=== PATIENT | female | born 1935 | race Caucasian/White ===

== ENCOUNTER 2022-06-21 09:28 | Inpatient (IN) ==
--- NOTE | 2022-06-21 10:03 | Emergency Department Note ---
Impression & Plan Acute alteration in mental status ED Provider Note NAME: JOSE A FOURNIER AGE: 86 SEX: F : 1935 ARRIVES VIA: Walk-In INFORMANT: Patient, the patient's daughter ED PROVIDER(S): Saurabh Rodriguez DO CHIEF COMPLAINT: Altered mental status HPI: The patient is an 86-year-old female who presented to the emergency department with her daughter for a possible stroke evaluation. The patient does not have a history of dementia. She normally is awake alert and oriented to person place time and situation. Her daughter states that she had a very minimal conversation with her this morning at around 8 AM. Her mother appeared to be at her normal mental status. She then came back to talk to her again and she realized that her mother was confused. She was confused about where she was. She asked her mother if she was in [place]. She then asked about the patient's ex- and wanted to know where he was even though she knew he was not local. There is been no reported trauma or fever. She has had no dysuria or frequency. She is under nausea vomiting or headache. She does not have a history of stroke in the past. The patient states that she felt fine when she went to bed last evening. ROS: See above HPI for pertinent positives & negatives. A total of 10 systems reviewed and were otherwise negative. PAST MEDICAL HISTORY: See Below PAST SURGICAL HISTORY: See Below FAMILY HISTORY: See Below SOCIAL HISTORY: See Below HOME MEDICATIONS: See Below ALLERGIES: See Below VITALS: See Below PHYSICAL EXAMINATION: GENERAL: Patient is awake alert in no acute distress patient is resting c omfortably and showing no signs of anxiety EYES: The conjunctivae are clear. The pupils are round and reactive. EARS, NOSE, MOUTH AND THROAT: The nose is without any evidence of any deformity. Mucous membranes are moist. Tongue is midline. NECK: The neck is nontender and supple. RESPIRATORY: Normal respiratory effort is noted there is no evidence of wheezing rhonchi or rales CARDIOVASCULAR: Regular rate and rhythm was noted auscultation. Systolic murmur was suggested. GASTROINTESTINAL: The abdomen is soft. Abdomen is nontender. MUSCULOSKELETAL/EXTREMITIES: There is no evidence of gross deformity full range of motion is noted in the hips and shoulders. SKIN: There is no obvious evidence of any rash. There are no petechiae, pallor or cyanosis noted. NEUROLOGIC: Patient is awake alert and oriented to person place and situation. She is not oriented to time. She is able to do simple math problems. Medical Office Professional Instructor strength was symmetric. There is no facial droop. Patient is able to hold each leg off the bed for greater than 5 seconds. MEDICAL DECISION MAKING: Patient is an 86-year-old female who presented to the emergency department for an evaluation of altered mental status. The patient presented with her daughter. She was not made a stroke alert initially on arrival as the patient's NIH score was fluctuating between 0 and 1. She was not found to have any acute findings on CT of the head. I did discuss the possibility of making the patient a stroke alert with her and her family. At this time the risk of delivering thrombolytic may be higher than the benefit given the patient's findings today in the emergency department. She had no focal neurologic deficits and only lost points because she was intermittently confused about date and surroundings. I discussed the patient's laboratory and radiographic studies with her and her daughter. She was still found to have some degree of confusion in the emergency department. She also started having some retrograde amnesia about coming to the emergency department. For this reason I discussed her case with the on-call [facility] hospitalist. They have agreed to evaluate the patient in the emergency department for further management and disposition. Triage Nursing notes reviewed. Prior medical records reviewed Vital Signs: reviewed and remarkable for elevated blood pressure. Differential diagnosis: Infection, hypoglycemia, electrolyte abnormalities, overdose, toxicologic, cardiac sources, intracerebral event, neurologic, trauma, as well as other pathologies. ER treatment provided: See below Diagnostics interpreted by me: ECG: EKG was obtained in the emergency department. My interpretation is sinus rhythm at 66 bpm. There is no ectopy. There is no acute ST segment abnormalities noted. No previous tracing was available. Cardiac Monitoring: An order was placed for continuous cardiac monitoring. The monitor shows a rate of 69 bpm with sinus rhythm. Laboratory studies: As stated above and show below. Imaging studies: See below Consultation(s): I discussed this case with Dr. Metcalf Past Med/Surg History Medical History (Updated 06/21/22 @ 14:42 by Saurabh Rodriguez DO) Anemia Anxiety Asthma rare res inh use per pt Chronic obstructive pulmonary disease rare res inh use per pt Diverticular disease Esophagitis GERD (gastroesophageal reflux disease) Hyperlipidemia borderline per pt Hypertension Hypothyroidism Osteoarthritis Rheumatoid arthritis Slow to wake up after anesthesia Surgical History (Updated 06/21/22 @ 13:57 by Martha Metcalf MD) History of aortic valve repair 2016 per pt History of appendectomy History of carpal tunnel release left History of cataract surgery LEFT History of cholecystectomy History of colonoscopy History of esophagogastroduodenoscopy (EGD) History of hysterectomy History of tonsillectomy History of tooth extraction History of total knee replacement left Hx of foot surgery right Family History Daughter Slow to wake up after anesthesia Social History Smoking Status: Never smoker Second Hand Exposure: No; Hx Alcohol Use: No Hx Substance Use: No Preferred Language: Kazakh Communication Ability: Effective Aerospace Assembler Required: No Beliefs That Will Affect Care: None Current Living Situation: Alone Other Information That Helps Us Care for You: No Feels Safe at Home: Yes Safety Concerns: Feels Safe At This Time Assistive Devices: Cane, Denture - Upper, Denture - Lower and Hearing Aid - Right Allergies Allergies Allergy/AdvReac Type Severity Reaction Status Date / Time lisinopril Allergy Intermediate Cough Verified 06/21/22 15:18 Sulfa (Sulfonamide Allergy Intermediate Rash Verified 06/21/22 15:18 Antibiotics) tramadol Allergy Intermediate restless Verified 06/21/22 15:18 clonazepam [From Klonopin] Allergy Unknown Unknown Verified 06/21/22 15:18 mepivacaine [From Carbocaine] AdvReac Intermediate crying Verified 06/21/22 15:18 Home Meds Home Medications Medication Instructions Recorded Confirmed albuterol sulfate 90 mcg/actuation 2 puff inhalation Q6H PRN 02/13/22 06/21/22 aerosol inhaler (ProAir HFA) Congestion aspirin 81 mg tablet,delayed 81 mg PO QAM 02/13/22 06/21/22 release calcium carbonate 600 mg-vitamin 1 tab PO QAM 02/13/22 06/21/22 D3 10 mcg (400 unit) tablet (Calcium 600 + D(3)) docusate sodium 100 mg capsule 100 mg PO QAM 02/13/22 06/21/22 (Colace) duloxetine 60 mg capsule,delayed 60 mg PO Q OTHER DAY 02/13/22 06/21/22 release fluticasone furoate 200 1 inh inhalation HS 02/13/22 06/21/22 mcg-vilanterol 25 mcg/dose inhalation powder (Breo Ellipta) furosemide 40 mg tablet (Lasix) 40 mg PO QAM 02/13/22 06/21/22 hydrocodone 5 mg-acetaminophen 325 1 tab PO Q4H PRN Pain 02/13/22 06/21/22 mg tablet levothyroxine 150 mcg tablet 150 mcg PO QAM 02/13/22 06/21/22 lorazepam 0.5 mg tablet 0.5 mg PO BID PRN Anxiety 02/13/22 06/21/22 losartan 100 mg tablet 100 mg PO QAM 02/13/22 06/21/22 metoprolol tartrate 25 mg tablet 12.5 mg PO BID 02/13/22 06/21/22 multivitamin 1 tab PO QAM 02/13/22 06/21/22 omeprazole 40 mg capsule,delayed 40 mg PO HS 02/13/22 06/21/22 release potassium chloride 10 mEq 10 meq PO QAM 02/13/22 06/21/22 capsule,extended release pramipexole 1 mg tablet 1 mg PO BID 02/13/22 06/21/22 trazodone 100 mg tablet 100 mg PO HS 02/13/22 06/21/22 vit C 250 mg-vit E 90 mg-zinc 40 1 tab PO QAM 02/13/22 06/21/22 mg-copper 1 [id number] capsule (PreserVision AREDS-2) Results & Data (ED) Vital Signs Vital Signs - 24 hr 06/21/22 09:33 06/21/22 10:00 06/21/22 09:54 Temperature 36.3 C L Temperature Source Temporal Artery Scan Pulse Rate 68 Pulse Rate [Apical] 65 Pulse Rate from SpO2 Sensor Respiratory Rate 16 18 Respiratory Effort / Characteristics Non-Labored Non-Labored Spontaneous Respiratory Depth Normal Normal Blood Pressure 143/62 H Blood Pressure [Right Arm] 124/67 Blood Pressure Mean 89 Blood Pressure Mean [Right Arm] 86 Pulse Oximetry 94 95 Oxygen Delivery Method Room Air Room Air Room Air Sepsis Recent Fever Within 48 Hours No Sepsis New/Unexplained Change in Mental Status No Sepsis Action Taken by Nursing No Action Required 06/21/22 11:00 06/21/22 11:00 06/21/22 11:33 Temperature Temperature Source Pulse Rate 67 Pulse Rate [Apical] 80 Pulse Rate from SpO2 Sensor 71 Respiratory Rate 18 19 Respiratory Effort / Characteristics Respiratory Depth Blood Pressure 119/70 Blood Pressure [Right Arm] 148/73 H Blood Pressure Mean 86 Blood Pressure Mean [Right Arm] 98 Pulse Oximetry 95 94 Oxygen Delivery Method Room Air Sepsis Recent Fever Within 48 Hours Sepsis New/Unexplained Change in Mental Status Sepsis Action Taken by Nursing 06/21/22 12:15 06/21/22 12:30 06/21/22 12:30 Temperature Temperature Source Pulse Rate 67 Pulse Rate [Apical] Pulse Rate from SpO2 Sensor 82 68 Respiratory Rate 17 Respiratory Effort / Characteristics Respiratory Depth Blood Pressure 122/85 Blood Pressure [Right Arm] Blood Pressure Mean 97 Blood Pressure Mean [Right Arm] Pulse Oximetry 91 94 Oxygen Delivery Method Room Air Room Air Sepsis Recent Fever Within 48 Hours Sepsis New/Unexplained Change in Mental Status Sepsis Action Taken by Nursing 06/21/22 13:00 06/21/22 13:00 06/21/22 13:30 Temperature Temperature Source Pulse Rate 69 Pulse Rate [Apical] Pulse Rate from SpO2 Sensor 69 Respiratory Rate 23 Respiratory Effort / Characteristics Respiratory Depth Blood Pressure 121/72 141/80 H Blood Pressure [Right Arm] Blood Pressure Mean 88 100 Blood Pressure Mean [Right Arm] Pulse Oximetry 93 Oxygen Delivery Method Room Air Sepsis Recent Fever Within 48 Hours Sepsis New/Unexplained Change in Mental Status Sepsis Action Taken by Nursing 06/21/22 13:30 06/21/22 14:00 06/21/22 14:00 Temperature Temperature Source Pulse Rate 69 69 Pulse Rate [Apical] Pulse Rate from SpO2 Sensor 68 71 Respiratory Rate 23 14 Respiratory Effort / Characteristics Respiratory Depth Blood Pressure 145/86 H Blood Pressure [Right Arm] Blood Pressure Mean 105 Blood Pressure Mean [Right Arm] Pulse Oximetry 95 94 Oxygen Delivery Method Room Air Room Air Sepsis Recent Fever Within 48 Hours Sepsis New/Unexplained Change in Mental Status Sepsis Action Taken by [facility] Medications Current Medication List: was personally reviewed by me Laboratory Data Attestation: I reviewed the patient's lab results. Result diagrams: 06/21/22 10:00 06/21/22 10:00 Lab Results 06/21/22 06/21/22 06/21/22 Range/Units 10:00 10:00 10:00 WBC 4.95 (4.8-10.8) K/ul RBC 4.51 (3.93-5.22) M/uL Hgb 13.7 (12.0-16.0) g/dl Hct 42.2 (34.1-44.9) % MCV 93.6 (80.0-100.0) fL MCH 30.4 (25.0-34.0) pg MCHC 32.5 (32.0-36.0) g/dL RDW Std Deviation 46.9 H (36.4-46.3) fL RDW Coeff of Giselle 13.8 (11.5-14.5) % Plt Count 239 (130-400) K/uL MPV 9.3 L (9.4-12.3) fL Immature Gran % (Auto) 0.4 % Neut % (Auto) 56.7 % Lymph % (Auto) 27.3 % [place] % (Auto) 9.1 % Eos % (Auto) 5.5 % Baso % (Auto) 1.0 % Neut # (Auto) 2.81 (1.4-6.5) K/uL Lymph # (Auto) 1.35 (1.2-3.4) K/uL [place] # (Auto) 0.45 (0.24-0.82) K/uL Eos # (Auto) 0.27 (0-0.50) K/uL Baso # (Auto) 0.05 (0-0.2) K/uL Immature Gran # (Auto) 0.02 (0.00-0.02) K/uL PT 11.2 (9.0-12.0) Seconds INR 1.1 (0.9-1.1) APTT 26.3 (21.0-31.0) Seconds PTT Ratio 1.0 Sodium 139 (136-145) mmol/L Potassium 3.8 (3.5-5.1) mmol/L Chloride 100 (98-107) mmol/L Carbon Dioxide 31 (21-32) mmol/L Anion Gap 8 (3-11) BUN 15 (6-23) mg/dl Creatinine 0.69 (0.6-1.2) mg/dl Est Cr Clr Drug Dosing 53.3 ml/min Est GFR ( Amer) 91.4 ml/min Est GFR (Non-Af Amer) 78.8 ml/min BUN/Creatinine Ratio 21.7 H (10-20) Glucose 103 H (70-99(Fasting)) mg/dl POC Glucose (70-99) mg/dl Calcium 9.8 (8.5-10.1) mg/dl Magnesium 1.8 (1.7-2.4) mg/dl Total Bilirubin 0.4 (0.2-1.0) mg/dl AST 21 (13-39) U/L ALT 17 (7-52) U/L Alkaline Phosphatase 104 (34-104) U/L Troponin I High Sens 11.2 (0-14) pg/ml Total Protein 7.4 (6.0-8.3) gm/dl Albumin 4.1 (3.4-5.0) gm/dl Globulin 3.3 (2.5-4.0) gm/dl Albumin/Globulin Ratio 1.2 (0.9-2) Urine Color Urine Appearance (Clear) Urine pH (4.5-7.5) Ur Specific [place] (1.000-1.030) Urine Protein (Negative) Urine Glucose (UA) (Negative) Urine Ketones (Negative) Urine Blood (Negative) Urine Nitrite (Negative) Urine Bilirubin (Negative) Urine Urobilinogen (Negative) Ur Leukocyte Esterase (Negative) SARS-CoV-2, RNA, NAAT (NEGATIVE) 06/21/22 06/21/22 06/21/22 Range/Units 10:05 10:18 11:30 WBC (4.8-10.8) K/ul RBC (3.93-5.22) M/uL Hgb (12.0-16.0) g/dl Hct (34.1-44.9) % MCV (80.0-100.0) fL MCH (25.0-34.0) pg MCHC (32.0-36.0) g/dL RDW Std Deviation (36.4-46.3) fL RDW Coeff of Giselle (11.5-14.5) % Plt Count (130-400) K/uL MPV (9.4-12.3) fL Immature Gran % (Auto) % Neut % (Auto) % Lymph % (Auto) % [place] % (Auto) % Eos % (Auto) % Baso % (Auto) % Neut # (Auto) (1.4-6.5) K/uL Lymph # (Auto) (1.2-3.4) K/uL [place] # (Auto) (0.24-0.82) K/uL Eos # (Auto) (0-0.50) K/uL Baso # (Auto) (0-0.2) K/uL Immature Gran # (Auto) (0.00-0.02) K/uL PT (9.0-12.0) Seconds INR (0.9-1.1) APTT (21.0-31.0) Seconds PTT Ratio Sodium (136-145) mmol/L Potassium (3.5-5.1) mmol/L Chloride (98-107) mmol/L Carbon Dioxide (21-32) mmol/L Anion Gap (3-11) BUN (6-23) mg/dl Creatinine (0.6-1.2) mg/dl Est Cr Clr Drug Dosing ml/min Est GFR ( Amer) ml/min Est GFR (Non-Af Amer) ml/min BUN/Creatinine Ratio (10-20) Glucose (70-99(Fasting)) mg/dl POC Glucose 90 (70-99) mg/dl Calcium (8.5-10.1) mg/dl Magnesium (1.7-2.4) mg/dl Total Bilirubin (0.2-1.0) mg/dl AST (13-39) U/L ALT (7-52) U/L Alkaline Phosphatase (34-104) U/L Troponin I High Sens (0-14) pg/ml Total Protein (6.0-8.3) gm/dl Albumin (3.4-5.0) gm/dl Globulin (2.5-4.0) gm/dl Albumin/Globulin Ratio (0.9-2) Urine Color Yellow Urine Appearance Clear (Clear) Urine pH 5.0 (4.5-7.5) Ur Specific [place] 1.009 (1.000-1.030) Urine Protein Negative (Negative) Urine Glucose (UA) Negative (Negative) Urine Ketones Negative (Negative) Urine Blood Negative (Negative) Urine Nitrite Negative (Negative) Urine Bilirubin Negative (Negative) Urine Urobilinogen Negative (Negative) Ur Leukocyte Esterase Negative (Negative) SARS-CoV-2, RNA, NAAT NEGATIVE (NEGATIVE) Administered Medications Fluticasone/Vilanterol (Fluticasone/Vilanterol 200/25mcg 14 Puffs/Inhaler) 1 puffs INH HS [facility] Stop: 07/21/22 20:59 Last Admin: 06/21/22 20:29 Dose: 1 puffs Documented By: JUMA Heparin Sodium (Porcine) (Heparin Sod 5,000 Unit/0.5 Ml Vial) 5,000 units SQ Q12 JENNIFER Stop: 07/21/22 20:59 Last Admin: 06/21/22 20:28 Dose: 5,000 units Documented By: JUMA Levothyroxine Sodium (Levothyroxine Sodium 150 Mcg Tablet) 150 mcg PO DAILYBB [facility] Stop: 07/22/22 06:29 Last Admin: 06/22/22 06:00 Dose: 150 mcg Documented By: JUMA Metoprolol Tartrate (Metoprolol Tartrate 25 Mg Tab) 12.5 mg PO BID JENNIFER Stop: 07/21/22 20:59 Last Admin: 06/21/22 20:27 Dose: 12.5 mg Documented By: JUMA Miscellaneous (Order Awaiting Action) 1 each N/A QS JENNIFER Stop: 07/22/22 00:00 Last Admin: 06/22/22 07:43 Dose: Not Given Documented By: Admin: 06/21/22 20:34 Dose: Not Given Documented By: JUMA Pantoprazole Sodium (Pantoprazole 40 Mg Tab) 40 mg PO [facility]; Protocol Stop: 07/21/22 20:59 Last Admin: 06/21/22 20:27 Dose: 40 mg Documented By: JUMA Discontinued Medications Ioversol (Optiray 320 125ml) 120 ml IV ONCE ONE Stop: 06/21/22 12:18 Last Admin: 06/21/22 12:18 Dose: 120 ml Documented By: ARNOLDO Morphine Sulfate (Morphine Sulfate 4 Mg/Ml 1 Ml Carp\Vial) 3 mg IV NOW STA Stop: 06/22/22 05:50 Last Admin: 06/22/22 06:02 Dose: 3 mg Documented By: JUMA Oxycodone HCl (Oxycodone Hcl Ir 5 Mg Tab (Immediate Release)) 5 mg PO NOW STA Stop: 06/21/22 23:35 Last Admin: 06/21/22 23:47 Dose: 5 mg Documented By: JUMA Imaging Data Radiologist's Impression: Chest X-Ray 06/21/22 09:54 SINGLE VIEW CHEST CLINICAL HISTORY: Strokelike symptoms. FINDINGS: An AP, portable, upright chest radiograph is correlated with chest CT to study dated 04/22/2022. The examination is degraded by portable technique and apical lordotic positioning. The patient is status post midline sternotomy and cardiac valve surgery. The heart is mildly enlarged noting atherosclerotic calcification of the thoracic aorta. The pulmonary vasculature is noncongested. Chronic interstitial thickening is similar to previous. 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 There is bibasilar scarring/atelectasis. No airspace consolidation or large pleural effusion is identified. No pneumothorax is seen. The skeletal structures are osteopenic. There are chronic right-sided rib fractures. Degenerative change is noted in the shoulders. IMPRESSION: Cardiomegaly with no acute cardiopulmonary abnormality identified. ACT 112: Negative or not required by law. Electronically signed by: Jose Monroy M.D. 06/21/2022 10:[address] 06/21/22 09:[address] OF THE BRAIN; CT ANGIOGRAM OF THE BRAIN; CT ANGIOGRAM OF THE NECK CLINICAL HISTORY: Strokelike symptoms. Change in mental status. COMPARISON STUDY: Chest CT dated 04/22/2022. TECHNIQUE: Unenhanced axial CT scan of the brain is performed. Subsequently, following the IV administration of 120 of Optiray 320, CT angiogram of the head and neck was performed from the aortic arch to the vertex. Images are reviewed in the axial, sagittal, and coronal planes. 3-D MIPS images are created and assessed. IV contrast was administered without complication. All measurements were calculated based on NASCET criteria. A dose lowering technique was utilized adhering to the principles of ALARA. CT DOSE: 1086.72 mGy.cm FINDINGS: Brain parenchyma: There is age-related involutional change noting moderate to advanced confluent subcortical and periventricular microangiopathic disease. There is no hemorrhage, mass effect, or evidence of acute territorial ischemia by CT criteria. There is no evidence of enhancing mass lesion on the angiogram phase images. The ventricles, sulci, and cisterns are prominent secondary to involutional change. Diallo-white matter differentiation is preserved. No extra- axial fluid collection is seen. Thoracic aorta: There is atherosclerotic calcification of the thoracic aorta. Visualized portions of the thoracic aorta are normal in caliber. The aortic arch demonstrates standard 3-vessel anatomy. Right carotid arterial system: The right common carotid artery is widely patent, as are the right internal and external carotid arteries. Calcified plaque is noted in the carotid bulb. Left carotid arterial system: The left common carotid artery is widely patent, as are the left internal and external carotid arteries. Calcified plaque is noted in the carotid bulb. Vertebral arteries: The vertebral arteries are widely patent bilaterally and codominant. Subclavian arteries: Widely patent bilaterally. Atherosclerotic calcification is noted at the origin of the left subclavian artery. Intracranial vasculature: There is atherosclerotic calcification of the cavernous carotid arteries. The internal carotid arteries are patent at the skull base, as are the anterior and middle cerebral arteries bilaterally. The vertebrobasilar system and posterior cerebral arteries are widely patent. The vertebral arteries are codominant. There is no aneurysm, high-grade stenosis, or focal vessel cut off seen throughout the intracranial circulation. Jugular veins: Patent bilaterally. Dural sinuses: Patent. Lung apices: A 7 mm left upper lobe nodule is seen on image #59. Upper lobe lung parenchyma is otherwise clear as imaged. Soft tissues: The visualized pharyngeal soft tissues are normal in appearance noting angiographic phase technique. The oropharyngeal airway appears widely patent. The thyroid gland is mildly enlarged and heterogeneous. The salivary glands are normal in appearance. No cervical lymphadenopathy is seen. Skeletal structures: The skeletal structures are osteopenic. The calvarium appears intact. The cervical spine is maintained noting multilevel spondylosis. No lytic or blastic lesion is seen. Midline sternotomy wires are observed. Orbits: The bony orbits are intact. Orbital contents are normal as visualized noting bilateral ocular lens implants. Sinuses and mastoids: The paranasal sinuses are clear. The mastoid air cells are well pneumatized. IMPRESSION: 1. There is no hemorrhage, mass effect, or evidence of acute territorial ischemia by CT criteria. 2. Unremarkable CT angiogram of the brain. 3. Unremarkable CT angiogram of the neck. 4. There is an irregular 7 mm left upper lobe pulmonary nodule. This is new from the 04/22/[address] and likely inflammatory. Any follow-up should be based on clinical grounds. ACT 112: Negative or not required by law. Electronically signed by: Jose Monroy M.D. 06/21/2022 12:37 PM Head CTA 06/21/22 09:[address] OF THE BRAIN; CT ANGIOGRAM OF THE BRAIN; CT ANGIOGRAM OF THE NECK CLINICAL HISTORY: Strokelike symptoms. Change in mental status. COMPARISON STUDY: Chest CT dated 04/22/2022. TECHNIQUE: Unenhanced axial CT scan of the brain is performed. Subsequently, following the IV administration of 120 of Optiray 320, CT angiogram of the head and neck was performed from the aortic arch to the vertex. Images are reviewed in the axial, sagittal, and coronal planes. 3-D MIPS images are created and assessed. IV contrast was administered without complication. All measurements were calculated based on NASCET criteria. A dose lowering technique was utilized adhering to the principles of ALARA. CT DOSE: 1086.72 mGy.cm FINDINGS: Brain parenchyma: There is age-related involutional change noting moderate to advanced confluent subcortical and periventricular microangiopathic disease. There is no hemorrhage, mass effect, or evidence of acute territorial ischemia by CT criteria. There is no evidence of enhancing mass lesion on the angiogram phase images. The ventricles, sulci, and cisterns are prominent secondary to i nvolutional change. Diallo-white matter differentiation is preserved. No extra- axial fluid collection is seen. Thoracic aorta: There is atherosclerotic calcification of the thoracic aorta. Visualized portions of the thoracic aorta are normal in caliber. The aortic arch demonstrates standard 3-vessel anatomy. Right carotid arterial system: The right common carotid artery is widely patent, as are the right internal and external carotid arteries. Calcified plaque is noted in the carotid bulb. Left carotid arterial system: The left common carotid artery is widely patent, as are the left internal and external carotid arteries. Calcified plaque is noted in the carotid bulb. Vertebral arteries: The vertebral arteries are widely patent bilaterally and codominant. Subclavian arteries: Widely patent bilaterally. Atherosclerotic calcification is noted at the origin of the left subclavian artery. Intracranial vasculature: There is atherosclerotic calcification of the cavernous carotid arteries. The internal carotid arteries are patent at the skull base, as are the anterior and middle cerebral arteries bilaterally. The vertebrobasilar system and posterior cerebral arteries are widely patent. The vertebral arteries are codominant. There is no aneurysm, high-grade stenosis, or focal vessel cut off seen throughout the intracranial circulation. Jugular veins: Patent bilaterally. Dural sinuses: Patent. Lung apices: A 7 mm left upper lobe nodule is seen on image #59. Upper lobe lung parenchyma is otherwise clear as imaged. Soft tissues: The visualized pharyngeal soft tissues are normal in appearance noting angiographic phase technique. The oropharyngeal airway appears widely patent. The thyroid gland is mildly enlarged and heterogeneous. The salivary glands are normal in appearance. No cervical lymphadenopathy is seen. Skeletal structures: The skeletal structures are osteopenic. The calvarium appears intact. The cervical spine is maintained noting multilevel spondylosis. No lytic or blastic lesion is seen. Midline sternotomy wires are observed. Orbits: The bony orbits are intact. Orbital contents are normal as visualized noting bilateral ocular lens implants. Sinuses and mastoids: The paranasal sinuses are clear. The mastoid air cells are well pneumatized. IMPRESSION: 1. There is no hemorrhage, mass effect, or evidence of acute territorial ischemia by CT criteria. 2. Unremarkable CT angiogram of the brain. 3. Unremarkable CT angiogram of the neck. 4. There is an irregular 7 mm left upper lobe pulmonary nodule. This is new from the 04/22/[address] and likely inflammatory. Any follow-up should be based on clinical grounds. ACT 112: Negative or not required by law. Electronically signed by: Jose Monroy M.D. 06/21/2022 12:37 PM Neck CTA 06/21/22 09:[address] OF THE BRAIN; CT ANGIOGRAM OF THE BRAIN; CT ANGIOGRAM OF THE NECK CLINICAL HISTORY: Strokelike symptoms. Change in mental status. COMPARISON STUDY: Chest CT dated 04/22/2022. TECHNIQUE: Unenhanced axial CT scan of the brain is performed. Subsequently, following the IV administration of 120 of Optiray 320, CT angiogram of the head and neck was performed from the aortic arch to the vertex. Images are reviewed in the axial, sagittal, and coronal planes. 3-D MIPS images are created and assessed. IV contrast was administered without complication. All measurements were calculated based on NASCET criteria. A dose lowering technique was utilized adhering to the principles of ALARA. CT DOSE: 1086.72 mGy.cm FINDINGS: Brain parenchyma: There is age-related involutional change noting moderate to advanced confluent subcortical and periventricular microangiopathic disease. There is no hemorrhage, mass effect, or evidence of acute territorial ischemia by CT criteria. There is no evidence of enhancing mass lesion on the angiogram phase images. The ventricles, sulci, and cisterns are prominent secondary to involutional change. Diallo-white matter differentiation is preserved. No extra- axial fluid collection is seen. Thoracic aorta: There is atherosclerotic calcification of the thoracic aorta. Visualized portions of the thoracic aorta are normal in caliber. The aortic arch demonstrates standard 3-vessel anatomy. Right carotid arterial system: The right common carotid artery is widely patent, as are the right internal and external carotid arteries. Calcified plaque is noted in the carotid bulb. Left carotid arterial system: The left common carotid artery is widely patent, as are the left internal and external carotid arteries. Calcified plaque is noted in the carotid bulb. Vertebral arteries: The vertebral arteries are widely patent bilaterally and codominant. Subclavian arteries: Widely patent bilaterally. Atherosclerotic calcification is noted at the origin of the left subclavian artery. Intracranial vasculature: There is atherosclerotic calcification of the cavernous carotid arteries. The internal carotid arteries are patent at the skull base, as are the anterior and middle cerebral arteries bilaterally. The vertebrobasilar system and posterior cerebral arteries are widely patent. The vertebral arteries are codominant. There is no aneurysm, high-grade stenosis, or focal vessel cut off seen throughout the intracranial circulation. Jugular veins: Patent bilaterally. Dural sinuses: Patent. Lung apices: A 7 mm left upper lobe nodule is seen on image #59. Upper lobe lung parenchyma is otherwise clear as imaged. Soft tissues: The visualized pharyngeal soft tissues are normal in appearance noting angiographic phase technique. The oropharyngeal airway appears widely patent. The thyroid gland is mildly enlarged and heterogeneous. The salivary glands are normal in appearance. No cervical lymphadenopathy is seen. Skeletal structures: The skeletal structures are osteopenic. The calvarium appears intact. The cervical spine is maintained noting multilevel spondylosis. No lytic or blastic lesion is seen. Midline sternotomy wires are observed. Orbits: The bony orbits are intact. Orbital contents are normal as visualized noting bilateral ocular lens implants. Sinuses and mastoids: The paranasal sinuses are clear. The mastoid air cells are well pneumatized. IMPRESSION: 1. There is no hemorrhage, mass effect, or evidence of acute territorial ischemia by CT criteria. 2. Unremarkable CT angiogram of the brain. 3. Unremarkable CT angiogram of the neck. 4. There is an irregular 7 mm left upper lobe pulmonary nodule. This is new from the 04/22/[address] and likely inflammatory. Any follow-up should be based on clinical grounds. ACT 112: Negative or not required by law. Electronically signed by: Jose Monroy M.D. 06/21/2022 12:37 PM Discharge Plan Visit Data Chief Complaint: Confusion Stated Complaint: CONFUSION ED Provider: Saurabh Rodriguez Discharge Problem: Acute alteration in mental status Patient Disposition: Admitted As Inpatient Discharge Instructions Interventions: ED Discharge Assessment Last Done: 06/21/22 15:57
[2022-06-21 10:18] LABS: Basophils # (auto) 0.05 K/uL (0-0.2); Eosinophils # (auto) 0.27 K/uL (0-0.50); Eosinophils % (auto) 5.5 %; Hematocrit (blood only) 42.2 % (34.1-44.9); Hemoglobin 13.7 g/dl (12.0-16.0); Immature Granulocytes # (auto) 0.02 K/uL (0.00-0.02); Immature Granulocytes % (auto) 0.4 %; Lymphocytes # (auto) 1.35 K/uL (1.2-3.4); Lymphocytes % (auto) 27.3 %; Mean Corpuscular Hemoglobin 30.4 pg (25.0-34.0); Mean Corpuscular Hgb Conc 32.5 g/dL (32.0-36.0); Mean Corpuscular Volume 93.6 fL (80.0-100.0); Mean Platelet Volume 9.3 fL (9.4-12.3); Monocytes # (auto) 0.45 K/uL (0.24-0.82); Monocytes % (auto) 9.1 %; Neutrophils # (auto) 2.81 K/uL (1.4-6.5); Neutrophils % (auto) 56.7 %; Platelet Count 239 K/uL (130-400); RDW Coefficient of Variation 13.8 % (11.5-14.5); RDW Standard Deviation 46.9 fL (36.4-46.3); Red Blood Count 4.51 M/uL (3.93-5.22); White Blood Count 4.95 K/ul (4.8-10.8)
[2022-06-21 10:29] LABS: INR 1.1 (0.9-1.1); Partial Thromboplastin Time 26.3 Seconds (21.0-31.0); Prothrombin Time 11.2 Seconds (9.0-12.0)
--- NOTE | 2022-06-21 10:40 | XRay Report ---
SINGLE VIEW CHEST CLINICAL HISTORY: Strokelike symptoms. FINDINGS: An AP, portable, upright chest radiograph is correlated with chest CT to study dated 022. The examination is degraded by portable technique and apical lordotic positioning. The patient i s status post midline sternotomy and cardiac valve surgery. The heart is mildly enlarged noting ather osclerotic calcification of the thoracic aorta. The pulmonary vasculature is noncongested. Chronic in terstitial thickening is similar to previous. 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 There is bibasilar scarring/atelectasis. No airspace consolidation or large pleural effus ion is identified. No pneumothorax is seen. The skeletal structures are osteopenic. There are chronic right-sided rib fractures. Degenerative change is noted in the shoulders. IMPRESSION: Cardiomegaly with no acute cardiopulmonary abnormality identified. ACT 112: Negative or not required by law. Electronically signed by: Jose Monroy M.D. 06/21/2022 10:39 AM
[2022-06-21 10:47] LABS: Albumin Globulin Ratio 1.2 (0.9-2); Albumin Level 4.1 gm/dl (3.4-5.0); BUN Creatinine Ratio 21.7 (10-20); Bilirubin,Total 0.4 mg/dl (0.2-1.0); Calcium 9.8 mg/dl (8.5-10.1); Creatinine Clr Calc Pharmacy 53.3 ml/min; Est GFR (African American) 91.4 ml/min; Est GFR (Non-African American) 78.8 ml/min; Globulin 3.3 gm/dl (2.5-4.0); Magnesium 1.8 mg/dl (1.7-2.4); Potassium 3.8 mmol/L (3.5-5.1); Total Protein 7.4 gm/dl (6.0-8.3)
[2022-06-21 10:50] LABS: Troponin I High Sensitivity 11.2 pg/ml (0-14)
[2022-06-21 11:48] LABS: Appearance Urine Clear (Clear); Bilirubin Urine Negative (Negative); Blood Urine Negative (Negative); Color Urine Yellow; Glucose Urine UA Negative (Negative); Ketones Urine Negative (Negative); Leukocyte Esterase Urine Negative (Negative); Nitrite Urine Negative (Negative); Protein Urine Negative (Negative); Specific Gravity Urine 1.009 (1.000-1.030); Urobilinogen Urine Negative (Negative)
[2022-06-21] MEDS ORDERED: OPTIRAY 320 125ml IV ONE (12:17)
--- NOTE | 2022-06-21 12:39 | CT Scan Report ---
UNENHANCED CT OF THE BRAIN; CT ANGIOGRAM OF THE BRAIN; CT ANGIOGRAM OF THE NECK CLINICAL HISTORY: Strokelike symptoms. Change in mental status. COMPARISON STUDY: Chest CT dated 04/22/2022. TECHNIQUE: Unenhanced axial CT scan of the brain is performed. Subsequently, following the IV adminis tration of 120 of Optiray 320, CT angiogram of the head and neck was performed from the aortic arch t o the vertex. Images are reviewed in the axial, sagittal, and coronal planes. 3-D MIPS images are cre ated and assessed. IV contrast was administered without complication. All measurements were calculate d based on NASCET criteria. A dose lowering technique was utilized adhering to the principles of ALA RA. CT DOSE: 1086.72 mGy.cm FINDINGS: Brain parenchyma: There is age-related involutional change noting moderate to advanced confluent subc ortical and periventricular microangiopathic disease. There is no hemorrhage, mass effect, or evidenc e of acute territorial ischemia by CT criteria. There is no evidence of enhancing mass lesion on the angiogram phase images. The ventricles, sulci, and cisterns are prominent secondary to involutional c hange. Diallo-white matter differentiation is preserved. No extra-axial fluid collection is seen. Thoracic aorta: There is atherosclerotic calcification of the thoracic aorta. Visualized portions of the thoracic aorta are normal in caliber. The aortic arch demonstrates standard 3-vessel anatomy. Right carotid arterial system: The right common carotid artery is widely patent, as are the right int ernal and external carotid arteries. Calcified plaque is noted in the carotid bulb. Left carotid arterial system: The left common carotid artery is widely patent, as are the left internal medicine nurse practitioner al and external carotid arteries. Calcified plaque is noted in the carotid bulb. Vertebral arteries: The vertebral arteries are widely patent bilaterally and codominant. Subclavian arteries: Widely patent bilaterally. Atherosclerotic calcification is noted at the origin of the left subclavian artery. Intracranial vasculature: There is atherosclerotic calcification of the cavernous carotid arteries. T he internal carotid arteries are patent at the skull base, as are the anterior and middle cerebral ar teries bilaterally. The vertebrobasilar system and posterior cerebral arteries are widely patent. The vertebral arteries are codominant. There is no aneurysm, high-grade stenosis, or focal vessel cut of f seen throughout the intracranial circulation. Jugular veins: Patent bilaterally. Dural sinuses: Patent. Lung apices: A 7 mm left upper lobe nodule is seen on image #59. Upper lobe lung parenchyma is otherw ise clear as imaged. Soft tissues: The visualized pharyngeal soft tissues are normal in appearance noting angiographic pha se technique. The oropharyngeal airway appears widely patent. The thyroid gland is mildly enlarged an d heterogeneous. The salivary glands are normal in appearance. No cervical lymphadenopathy is seen. Skeletal structures: The skeletal structures are osteopenic. The calvarium appears intact. The cervic al spine is maintained noting multilevel spondylosis. No lytic or blastic lesion is seen. Midline jed rnotomy wires are observed. Orbits: The bony orbits are intact. Orbital contents are normal as visualized noting bilateral ocular lens implants. Sinuses and mastoids: The paranasal sinuses are clear. The mastoid air cells are well pneumatized. IMPRESSION: 1. There is no hemorrhage, mass effect, or evidence of acute territorial ischemia by CT criteria. 2. Unremarkable CT angiogram of the brain. 3. Unremarkable CT angiogram of the neck. 4. There is an irregular 7 mm left upper lobe pulmonary nodule. This is new from the 04/22/[address] and likely inflammatory. Any follow-up should be based on clinical grounds. ACT 112: Negative or not required by law. Electronically signed by: Jose Monroy M.D. 06/21/2022 12:37 PM
--- NOTE | 2022-06-21 14:00 | History & Physical Report ---
Date of Service June 21, 2022 Assessment & Plan (1) Acute confusion: Plan: History of depression has not been on any medication due to cost She was brought into the emergency room with acute confusion since this morning without any other associated symptoms No infection noted and doubt any TIA and/or strokelike presentation Will continue with stroke rule out investigation Could be secondary to use of narcotics and or benzodiazepines which will be on hold Hello we will get routine neurology consult Patient remains pleasantly confused (2) Moderate persistent asthma in adult without complication: Plan: We will continue current medications No apparent exacerbation (3) Hypertension: Plan: Continue current antihypertensive medication (4) Hypothyroidism: Plan: Continue supplement (5) Osteoarthritis: Plan: Noted to have osteoarthritis/rheumatoid arthritis No acute exacerbation no acute arthritis (6) History of aortic valve repair: Plan: No acute issues (7) Depression: Plan: She has history of depression and was on Cymbalta before Cannot afford that medications anymore and not been taking any Has been on trazodone mainly to sleep (8) GERD (gastroesophageal reflux disease): Plan: Continue PPI DVT prophylaxis Subcu heparin CODE STATUS Full History of Present Illness Chief Complaint: Acute confusion since this morning Primary Care Provider: Jason Tejeda MD She is an 86 years old female with significant past medical history of moderate persistent asthma, status post aortic valve replacement, restless leg syndrome, hypertension, depression, osteoarthritis and bilateral hearing loss apparently was noted to be very confused by the daughter this morning. She woke up this morning and she did not know why or what she and whether she was in [place] or in someone else. She cannot remember whether she has had a breakfast after coming to the emergency room. She even forgot that her daughter brought her into the emergency room. She denies any problem with speech, vision, denies any numbness and or tingling in the extremities, any weakness involving any side of the body. She does not have any problem with urine or bowel habit and no history of fever, chills, chest pain, palpitation or any shortness of breath. She remained pleasantly confused in the emergency room without any acute distress and apparent investigations came back negative. She was admitted to medical telemetry unit for continuation of care. Allergies Allergy/AdvReac Type Severity Reaction Status Date / Time lisinopril Allergy Intermediate Cough Verified 03/11/22 08:53 Sulfa (Sulfonamide Allergy Intermediate Rash Verified 03/11/22 08:53 Antibiotics) tramadol Allergy Intermediate restless Verified 03/11/22 08:53 clonazepam [From Klonopin] Allergy Unknown Unknown Verified 03/11/22 08:53 mepivacaine [From Carbocaine] AdvReac Intermediate crying Verified 03/11/22 08:53 Home Medications Medication Instructions Recorded Confirmed Type albuterol sulfate 90 mcg/actuation 2 puff inhalation Q6H PRN 02/13/22 02/25/22 History aerosol inhaler (ProAir HFA) Congestion aspirin 81 mg tablet,delayed 81 mg PO QAM 02/13/22 03/11/22 History release biotin 5,000 mcg disintegrating 10,000 mcg PO QAM 02/13/22 03/11/22 History tablet calcium carbonate 600 mg-vitamin 1 tab PO QAM 02/13/22 03/11/22 History D3 10 mcg (400 unit) tablet (Calcium 600 + D(3)) docusate sodium 100 mg capsule 100 mg PO QAM 02/13/22 03/11/22 History (Colace) duloxetine 60 mg capsule,delayed 60 mg PO QAM 02/13/22 03/11/22 History release fluticasone furoate 200 1 inh inhalation HS 02/13/22 03/11/22 History mcg-vilanterol 25 mcg/dose inhalation powder (Breo Ellipta) furosemide 40 mg tablet (Lasix) 40 mg PO QAM 02/13/22 03/11/22 History hydrocodone 5 mg-acetaminophen 325 1 tab PO Q4H PRN Pain 02/13/22 02/25/22 History mg tablet levothyroxine 150 mcg tablet 150 mcg PO QAM 02/13/22 03/11/22 History lorazepam 0.5 mg tablet 0.5 mg PO BID PRN Anxiety 02/13/22 02/25/22 History losartan 100 mg tablet 100 mg PO QAM 02/13/22 03/11/22 History metoprolol tartrate 25 mg tablet 12.5 mg PO BID 02/13/22 03/11/22 History multivitamin 1 tab PO QAM 02/13/22 03/11/22 History omeprazole 40 mg capsule,delayed 40 mg PO HS 02/13/22 03/11/22 History release potassium chloride 10 mEq 10 meq PO QAM 02/13/22 03/11/22 History capsule,extended release pramipexole 1 mg tablet 1 mg PO BID 02/13/22 03/11/22 History trazodone 100 mg tablet 100 mg PO HS 02/13/22 03/11/22 History vit C 250 mg-vit E 90 mg-zinc 40 1 tab PO QAM 02/13/22 03/11/22 History mg-copper 1 [id number] capsule (PreserVision AREDS-2) amoxicillin 875 mg tablet 875 mg PO BID #20 tabs 04/22/22 Rx Past Med/Surg History Medical History (Updated 06/21/22 @ 13:57 by Martha Metcalf MD) Anemia Anxiety Asthma rare res inh use per pt Chronic obstructive pulmonary disease rare res inh use per pt Diverticular disease Esophagitis GERD (gastroesophageal reflux disease) Hyperlipidemia borderline per pt Hypertension Hypothyroidism Osteoarthritis Rheumatoid arthritis Slow to wake up after anesthesia Surgical History (Updated 06/21/22 @ 13:57 by Martha Metcalf MD) History of aortic valve repair 2016 per pt History of appendectomy History of carpal tunnel release left History of cataract surgery LEFT History of cholecystectomy History of colonoscopy History of esophagogastroduodenoscopy (EGD) History of hysterectomy History of tonsillectomy History of tooth extraction History of total knee replacement left Hx of foot surgery right Family History Daughter Slow to wake up after anesthesia Social History Smoking Status: Never smoker Second Hand Exposure: No; Hx Alcohol Use: No Hx Substance Use: No Preferred Language: [place]i Communication Ability: Effective Interpretive Program Coordinator Required: No Beliefs That Will Affect Care: None Current Living Situation: Family Feels Safe at Home: Yes Assistive Devices: Cane and Glasses Review of Systems Review of Systems: All systems reviewed and are unremarkable except as noted below Neurologic: Remains pleasantly confused. Physical Exam Physical Exam: Lying in bed comfortably Constitutional: well developed, well nourished and average body habitus; not ill appearing Eyes: PERRL, conjunctivae normal, anicteric sclerae ENMT: external ear and nose normal, oropharynx normal Neck: trachea midline, no thyromegaly Respiratory: no respiratory distress Auscultation: lungs clear to auscultation bilaterally Cardiovascular: Rate/Rhythm: regular rate and regular rhythm; not tachycardic Heart Sounds: normal S1 and normal S2; no murmur Extremities: no edema Gastrointestinal (Abdomen): Inspection/Auscultation: normal bowel sounds; abdomen not distended Percussion/Palpation: abdomen soft; abdomen nontender Musculoskeletal: Has osteoarthritic changes involving the hands and the feet but without any acute arthritis in any joint Neurologic: Alert and awake. Pleasantly confused. No focal sensory and motor deficit appreciated Lymphatic: no cervical or axillary lymphadenopathy Results & Data Results & Data ([facility]) Vital Signs (Past 12 Hours) Vital Signs Temp Pulse Pulse Resp BP BP Pulse Ox 06/21/22 13:30 69 23 95 06/21/22 13:30 141/80 H 06/21/22 13:00 69 23 93 06/21/22 13:00 121/72 06/21/22 12:30 67 17 94 06/21/22 12:30 122/85 06/21/22 12:15 91 06/21/22 11:33 80 19 148/73 H 94 06/21/22 11:00 67 18 95 06/21/22 11:00 119/70 06/21/22 09:54 06/21/22 10:00 65 18 124/67 95 06/21/22 09:33 36.3 C L 68 16 143/62 H 94 O2 Del Method 06/21/22 13:30 Room Air 06/21/22 13:30 06/21/22 13:00 Room Air 06/21/22 13:00 06/21/22 12:30 Room Air 06/21/22 12:30 06/21/22 12:15 Room Air 06/21/22 11:33 Room Air 06/21/22 11:00 06/21/22 11:00 06/21/22 09:54 Room Air 06/21/22 10:00 Room Air 06/21/22 09:33 Room Air Laboratory Results Short CBC 06/21/22 Range/Units 10:00 WBC 4.95 (4.8-10.8) K/ul Hgb 13.7 (12.0-16.0) g/dl Hct 42.2 (34.1-44.9) % Plt Count 239 (130-400) K/uL BMP 06/21/22 10:00 Sodium 139 Potassium 3.8 Chloride 100 Carbon Dioxide 31 BUN 15 Creatinine 0.69 Glucose 103 H Calcium 9.8 Liver Function 06/21/22 Range/Units 10:00 Total Bilirubin 0.4 (0.2-1.0) mg/dl AST 21 (13-39) U/L ALT 17 (7-52) U/L Alkaline Phosphatase 104 (34-104) U/L Albumin 4.1 (3.4-5.0) gm/dl Urine 06/21/22 Range/Units 11:30 Urine Color Yellow Urine Appearance Clear (Clear) Urine pH 5.0 (4.5-7.5) Ur Specific [place] 1.009 (1.000-1.030) Urine Protein Negative (Negative) Urine Glucose (UA) Negative (Negative)
[2022-06-21] MEDS ORDERED: ALBUTEROL HFA 8 GM INHALER INH PRN (16:59)
[2022-06-21] MEDS: METOPROLOL TARTRATE 25 MG TAB PO SCH (20:27)
[2022-06-21] MEDS: HEPARIN SOD 5,000 UNIT/0.5 ML VIAL SQ SCH (20:28)
[2022-06-21] MEDS ORDERED: FLUTICASONE/VILANTEROL 200/25MCG 14 PUFFS/INHALER INH SCH (21:00)
[2022-06-21] MEDS ORDERED: PANTOprazole 40 MG TAB PO SCH (21:00)
[2022-06-21] MEDS ORDERED: oxyCODONE HCL IR 5 MG TAB (IMMEDIATE RELEASE) PO STA (23:34)
[2022-06-22] MEDS ORDERED: MoRPHine SULFATE 4 MG/ML 1 ML CARP\\VIAL IV STA (05:49)
[2022-06-22] MEDS ORDERED: LEVOTHYROXINE SODIUM 150 MCG TABLET PO SCH (06:30)
[2022-06-22] MEDS ORDERED: ASPIRIN 81 MG ECTAB PO SCH (09:00)
[2022-06-22] MEDS ORDERED: MULTIVITAMIN TAB PO SCH (09:00)
[2022-06-22] MEDS ORDERED: CALCIUM 600MG + VIT D 400 IU TAB PO SCH (09:00)
[2022-06-22] MEDS ORDERED: DOCUSATE SODIUM 100 MG CAP PO SCH (09:00)
[2022-06-22] MEDS ORDERED: LOSARTAN POTASSIUM 50 MG TAB PO SCH (09:00)
[2022-06-22] MEDS ORDERED: DULoxetine HCL 60 MG CAP PO SCH (09:00)
[2022-06-22] MEDS ORDERED: NON-FORMULARY MEDICATION (Vit C,E-Zn-Coppr-Lutein-Zeaxan [Preservision Areds-2] 250-90-40- PO SCH (09:00)
[2022-06-22] MEDS: METOPROLOL TARTRATE 25 MG TAB PO SCH (09:14)
[2022-06-22] MEDS: HEPARIN SOD 5,000 UNIT/0.5 ML VIAL SQ SCH (09:15)
--- NOTE | 2022-06-22 10:43 | Psychiatric Consultation ---
Date of Consultation June 22, 2022 Impression / Recommendations Impression 86 yo woman with history of depression, anxiety and insomnia on trazodone who took an ativan the night prior to confusion onset, from an old script, likely leading to AM confusion/brief delirium. Confusion has now resolved. Given age and confusion would avoid benzos in the future and have family safely dispose of few remaining pills of lorazepam. In future if trazodone ineffective would recommend adding melatonin or considering switch to mirtazapine for insomnia. She reports her mood is otherwise stable. 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 Psychiatry consulted for recommendations regarding possible contribution from anxiety. Chief Complaint "I did take a medication the night before that I hadn't had in awhile". History of Present Illness Amanda was admitted medically after episode of confusion with lack of orientation and retrograde amnesia in the ED on the morning of 06/21/22. Head CT and stroke workup negative and reassuring in the ED. Today she is fully oriented and describes no recent changes in her medical status or psychiatric symptoms other than taking a pill of lorazepam, clarified specific pill with her daughter who confirmed via pill bottle at their home, for insomnia which was leftover from an old script she had from when she lived in [place]. She notes that emotionally she "has a lot on my plate" due to an ongoing difficult divorce but she is now living with her daughter in [place], after moving away from [place], and feels most of her prior depression and anxiety was situational from that marriage and that she feels much better since moving to [place] in fall 2020. She tapered off her Cymbalta about a week ago, under the guidance of of her PCP, and continues to feel glad about being off of an antidepressant as she feels better and didn't like the side effects. She continues to take trazodone every night for insomnia. The lorazepam is only used rarely and she couldn't recall the last time she had taken it prior to the night of 06/20/22 as the script is multiple years old and she has never needed a refill of it as she uses it so sparingly. Reviewed likely contribution to causing confusion and my recommendation to avoid lorazepam in the future which she agrees with. Past Psychiatric History Previous Psych History: depression, anxiety Outpatient Services: none Allergies Allergy/AdvReac Type Severity Reaction Status Date / Time lisinopril Allergy Intermediate Cough Verified 06/21/22 15:18 Sulfa (Sulfonamide Allergy Intermediate Rash Verified 06/21/22 15:18 Antibiotics) tramadol Allergy Intermediate restless Verified 06/21/22 15:18 clonazepam [From Klonopin] Allergy Unknown Unknown Verified 06/21/22 15:18 mepivacaine [From Carbocaine] AdvReac Intermediate crying Verified 06/21/22 15:18 Home Medications Medication Instructions Recorded Confirmed Type albuterol sulfate 90 mcg/actuation 2 puff inhalation Q6H PRN 02/13/22 06/21/22 History aerosol inhaler (ProAir HFA) Congestion aspirin 81 mg tablet,delayed 81 mg PO QAM 02/13/22 06/21/22 History release calcium carbonate 600 mg-vitamin 1 tab PO QAM 02/13/22 06/21/22 History D3 10 mcg (400 unit) tablet (Calcium 600 + D(3)) docusate sodium 100 mg capsule 100 mg PO QAM 02/13/22 06/21/22 History (Colace) duloxetine 60 mg capsule,delayed 60 mg PO Q OTHER DAY 02/13/22 06/21/22 History release fluticasone furoate 200 1 inh inhalation HS 02/13/22 06/21/22 History mcg-vilanterol 25 mcg/dose inhalation powder (Breo Ellipta) furosemide 40 mg tablet (Lasix) 40 mg PO QAM 02/13/22 06/21/22 History hydrocodone 5 mg-acetaminophen 325 1 tab PO Q4H PRN Pain 02/13/22 06/21/22 History mg tablet levothyroxine 150 mcg tablet 150 mcg PO QAM 02/13/22 06/21/22 History lorazepam 0.5 mg tablet 0.5 mg PO BID PRN Anxiety 02/13/22 06/21/22 History losartan 100 mg tablet 100 mg PO QAM 02/13/22 06/21/22 History metoprolol tartrate 25 mg tablet 12.5 mg PO BID 02/13/22 06/21/22 History multivitamin 1 tab PO QAM 02/13/22 06/21/22 History omeprazole 40 mg capsule,delayed 40 mg PO HS 02/13/22 06/21/22 History release potassium chloride 10 mEq 10 meq PO QAM 02/13/22 06/21/22 History capsule,extended release pramipexole 1 mg tablet 1 mg PO BID 02/13/22 06/21/22 History trazodone 100 mg tablet 100 mg PO HS 02/13/22 06/21/22 History vit C 250 mg-vit E 90 mg-zinc 40 1 tab PO QAM 02/13/22 06/21/22 History mg-copper 1 [id number] capsule (PreserVision AREDS-2) Substance Abuse History denies Personal History Living Arrangements: Home (with her daughter in [place]) Employment Status: Retired Marital Status: Beliefs That Will Affect Care: None Psychological Trauma History Comment: yes from prior marriage Patient History Medical History Anemia Anxiety Asthma rare res inh use per pt Chronic obstructive pulmonary disease rare res inh use per pt Diverticular disease Esophagitis GERD (gastroesophageal reflux disease) Hyperlipidemia borderline per pt Hypertension Hypothyroidism Osteoarthritis Rheumatoid arthritis Slow to wake up after anesthesia Surgical History History of aortic valve repair 2016 per pt History of appendectomy History of carpal tunnel release left History of cataract surgery LEFT History of cholecystectomy History of colonoscopy History of esophagogastroduodenoscopy (EGD) History of hysterectomy History of tonsillectomy History of tooth extraction History of total knee replacement left Hx of foot surgery right Family History Daughter Slow to wake up after anesthesia Social History Smoking Status: Never smoker Second Hand Exposure: No; Hx Alcohol Use: No Hx Substance Use: No Preferred Language: Monegasque Communication Ability: Effective Minute Clerk For Basic Traffic Required: No Beliefs That Will Affect Care: None marital status: Current Living Situation: Alone Other Information That Helps Us Care for You: No Feels Safe at Home: Yes Safety Concerns: Feels Safe At This Time Assistive Devices: Cane Physical Exam Psychiatric: Orientation: alert and oriented x 3 Apperance: appropriately dressed and appropriately groomed Eye Contact: good eye contact Motor Behavior: no abnormal motor movements Speech: normal rate/rhythm/volume of speech Affect: euthymic affect Mood: no depressed mood and no anxious mood Thought Process: linear/logical thought process Thought Content: reality based without delusions Suicidal Thoughts: denies suicidal thoughts Homicidal Thoughts: denies homicidal thoughts Hallucinations: no auditory hallucinations and no visual hallucinations Cognition: recent memory grossly intact, remote memory grossly intact, attention grossly intact and language grossly intact Estimated Intelligence: consistent with education level Insight: + fair insight Judgement: + fair judgement Vital Signs (Past 24 Hours): Last Vital Signs Temp 36.8 C 06/22/22 09:15 Pulse 74 06/22/22 09:15 Resp 16 06/22/22 09:15 BP 117/59 L 06/22/22 09:15 Pulse Ox 92 06/22/22 09:15 O2 Del Method 06/22/22 09:15 Review of Systems All systems reviewed & are unremarkable except as noted in HPI & below Results & Data (PSY) Medications Administered Aspirin ([facility] 81 Mg Ectab) [facility]: 07/22/22 08:59 Last Admin: 06/22/22 09:11 Dose: 81 mg Documented By: CRISTA Docusate Sodium (Docusate Sodium 100 Mg Cap) [facility]: 07/22/22 08:59 Last Admin: 06/22/22 09:11 Dose: 100 mg Documented By: CRISTA Duloxetine HCl (Duloxetine Hcl 60 Mg Cap) 60 mg PO QAM [facility] Stop: 07/22/22 08:59 Last Admin: 06/22/22 09:11 Dose: 60 mg Documented By: CRISTA Fluticasone/Vilanterol (Fluticasone/Vilanterol 200/25mcg 14 Puffs/Inhaler) 1 puffs INH HS [facility] Stop: 07/21/22 20:59 Last Admin: 06/21/22 20:29 Dose: 1 puffs Documented By: JUMA Heparin Sodium (Porcine) (Heparin Sod 5,000 Unit/0.5 Ml Vial) 5,000 units SQ Q12 [facility] Stop: 07/21/22 20:59 Last Admin: 06/22/22 09:15 Dose: 5,000 units Documented By: Admin: 06/21/22 20:28 Dose: 5,000 units Documented By: JUMA Levothyroxine Sodium (Levothyroxine Sodium 150 Mcg Tablet) 150 mcg PO DAILYBB [facility] Stop: 07/22/22 06:29 Last Admin: 06/22/22 06:00 Dose: 150 mcg Documented By: JUMA Losartan Potassium (Losartan Potassium 50 Mg Tab) [facility]: 07/22/22 08:59 Last Admin: 06/22/22 09:11 Dose: 100 mg Documented By: CRISTA Metoprolol Tartrate (Metoprolol Tartrate 25 Mg Tab) 12.5 mg PO BID [facility] Stop: 07/21/22 20:59 Last Admin: 06/22/22 09:14 Dose: 12.5 mg Documented By: Admin: 06/21/22 20:27 Dose: 12.5 mg Documented By: JUMA Miscellaneous (Order Awaiting Action) 1 each N/A QS [facility] Stop: 07/22/22 00:00 Last Admin: 06/22/22 07:43 Dose: Not Given Documented By: Admin: 06/21/22 20:34 Dose: Not Given Documented By: JUMA Multivitamins (Multivitamin Tab) [facility]: 07/22/22 08:59 Last Admin: 06/22/22 09:11 Dose: 1 tab Documented By: CRISTA Multivitamins/Minerals (Calcium 600mg + Vit D 400 Iu Tab) [facility] Stop: 07/22/22 08:59 Last Admin: 06/22/22 09:11 Dose: 1 tab Documented By: CRISTA Pantoprazole Sodium (Pantoprazole 40 Mg Tab) 40 mg PO [facility]; Protocol Stop: 07/21/22 20:59 Last Admin: 06/21/22 20:27 Dose: 40 mg Documented By: JUMA Coding Level of Care Code 62769 Inpt Consult Level 3 Diagnoses 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
--- NOTE | 2022-06-22 11:22 | Electrocardiogram Report ---
Test Reason : Blood Pressure : / mmHG Vent. Rate : 066 BPM Atrial Rate : 066 BPM P-R Int : 110 ms QRS Dur : 114 ms QT Int : 424 ms P-R-T Axes : 079 096 050 degrees QTc Int : 444 ms Sinus rhythm Non-specific intra-ventricular conduction block Rightward axis Borderline ECG No previous ECGs available Confirmed by Wesley Kendall ([id number]) on 06/22/2022 11:22:25 AM Referred By: REFERRED SELF Confirmed By:Wesley Kendall
--- NOTE | 2022-06-22 12:02 | Hospitalist Progress Note ---
Date of Service June 22, 2022 Assessment & Plan (1) Acute confusion: Plan: History of depression has not been on any medication due to cost - just recently finished Cymbalta taper She was brought into the emergency room with acute confusion since this morning without any other associated symptoms No infection noted and doubt any TIA and/or strokelike presentation Will continue with stroke rule out investigation - not likely - TTE showed G1DD as well as moderate , moderate to severe MR and left atrial enlargement. Could be secondary to use of narcotics and or benzodiazepines which will be on hold - most likely - seen by behavioral health who believes this is delirium due to Ativan and should be discontinued - stop Ativan and use trazodone for sleep disturbance - consider mirtazapine for sleep and depression as well (2) Moderate persistent asthma in adult without complication: Plan: We will continue current medications No apparent exacerbation (3) Hypertension: Plan: Continue current antihypertensive medication (4) Hypothyroidism: Plan: Continue supplement (5) Osteoarthritis: Plan: Noted to have osteoarthritis/rheumatoid arthritis No acute exacerbation no acute arthritis (6) History of aortic valve repair: Plan: No acute issues (7) Depression: Plan: Recently finished taper for cymbalta Cannot afford that medications anymore and not been taking any Has been on trazodone mainly to sleep (8) GERD (gastroesophageal reflux disease): Plan: Continue PPI DVT prophylaxis Subcu heparin CODE STATUS Full Bear Garner MD Hospital Medicine Admission and Anticipated Discharge Date Admission Date: June 21, 2022 Subjective She is an 86 years old female with significant past medical history of moderate persistent asthma, status post aortic valve replacement, restless leg syndrome, hypertension, depression, osteoarthritis and bilateral hearing loss apparently was noted to be very confused by the daughter. She reportedly took Ativan for the first time in a while and has also only just moved to the area recently as she is undergoing a divorce and has bills to pay, which is new for her. She was seen by behavioral health and recommend discontinuing Ativan and using trazodone for sleep going forward. Today she is AAOx3 and feels well. She understands that she was confused yesterday but does not really remember the episode. She denies chest pain, shortness of breath, n/v/d, dysuria, abdominal pain, LOC. Review of Systems Review of Systems: All systems reviewed & are unremarkable except as noted in Subjective Physical Exam Constitutional: WD/WN, vitals as above Eyes: PERRL, conjunctivae normal, anicteric sclerae ENMT: external ear and nose normal, oropharynx normal Respiratory: normal respiratory effort, lungs clear to auscultation Cardiovascular: RRR, no murmur, no edema Chest (Breasts): normal inspection/palpation of breasts Gastrointestinal (Abdomen): normal bowel sounds, soft, nontender, no hep atosplenomegaly Musculoskeletal: no cyanosis or clubbing, extremities motor strength 5/5 Skin: no rashes, warm and dry Neurologic: patellar DTR's 2+ bilat, sensation intact and PERRL, EOMI, accommodation nl, no face palsy, no dysarthria Psychiatric: A+Ox3, euthymic affect Results & Data Results & Data ([facility]) Vital Signs (Past 12 Hours) Vital Signs Temp Pulse Resp BP BP Pulse Ox O2 Del Method 06/22/22 11:07 37.0 C 62 18 110/68 92 Room Air 06/22/22 09:15 36.8 C 74 16 117/59 L 92 Room Air 06/22/22 02:55 36.4 C L 76 20 150/79 H 95 Room Air Diagnostic Findings Laboratory Results WBC 4.95 K/ul (4.8-10.8) 06/21/22 10:00 RBC 4.51 M/uL (3.93-5.22) 06/21/22 10:00 Hgb 13.7 g/dl (12.0-16.0) 06/21/22 10:00 Hct 42.2 % (34.1-44.9) 06/21/22 10:00 MCV 93.6 fL (80.0-100.0) 06/21/22 10:00 MCH 30.4 pg (25.0-34.0) 06/21/22 10:00 MCHC 32.5 g/dL (32.0-36.0) 06/21/22 10:00 RDW Std Deviation 46.9 fL (36.4-46.3) H 06/21/22 10:00 RDW Coeff of Giselle 13.8 % (11.5-14.5) 06/21/22 10:00 Plt Count 239 K/uL (130-400) 06/21/22 10:00 MPV 9.3 fL (9.4-12.3) L 06/21/22 10:00 Immature Gran % (Auto) 0.4 % 06/21/22 10:00 Neut % (Auto) 56.7 % 06/21/22 10:00 Lymph % (Auto) 27.3 % 06/21/22 10:00 Graves % (Auto) 9.1 % 06/21/22 10:00 Eos % (Auto) 5.5 % 06/21/22 10:00 Baso % (Auto) 1.0 % 06/21/22 10:00 Neut # (Auto) 2.81 K/uL (1.4-6.5) 06/21/22 10:00 Lymph # (Auto) 1.35 K/uL (1.2-3.4) 06/21/22 10:00 Graves # (Auto) 0.45 K/uL (0.24-0.82) 06/21/22 10:00 Eos # (Auto) 0.27 K/uL (0-0.50) 06/21/22 10:00 Baso # (Auto) 0.05 K/uL (0-0.2) 06/21/22 10:00 Immature Gran # (Auto) 0.02 K/uL (0.00-0.02) 06/21/22 10:00 PT 11.2 Seconds (9.0-12.0) 06/21/22 10:00 INR 1.1 (0.9-1.1) 06/21/22 10:00 APTT 26.3 Seconds (21.0-31.0) 06/21/22 10:00 PTT Ratio 1.0 06/21/22 10:00 Sodium 139 mmol/L (136-145) 06/21/22 10:00 Potassium 3.8 mmol/L (3.5-5.1) 06/21/22 10:00 Chloride 100 mmol/L (98-107) 06/21/22 10:00 Carbon Dioxide 31 mmol/L (21-32) 06/21/22 10:00 Anion Gap 8 (3-11) 06/21/22 10:00 BUN 15 mg/dl (6-23) 06/21/22 10:00 Creatinine 0.69 mg/dl (0.6-1.2) 06/21/22 10:00 Est Cr Clr Drug Dosing 53.3 ml/min 06/21/22 10:00 Est GFR ( Amer) 91.4 ml/min 06/21/22 10:00 Est GFR (Non-Af Amer) 78.8 ml/min 06/21/22 10:00 BUN/Creatinine Ratio 21.7 (10-20) H 06/21/22 10:00 Glucose 103 mg/dl (70-99(Fasting)) H 06/21/22 10:00 POC Glucose 90 mg/dl (70-99) 06/21/22 10:18 Calcium 9.8 mg/dl (8.5-10.1) 06/21/22 10:00 Magnesium 1.8 mg/dl (1.7-2.4) 06/21/22 10:00 Total Bilirubin 0.4 mg/dl (0.2-1.0) 06/21/22 10:00 AST 21 U/L (13-39) 06/21/22 10:00 ALT 17 U/L (7-52) 06/21/22 10:00 Alkaline Phosphatase 104 U/L (34-104) 06/21/22 10:00 Troponin I High Sens 11.2 pg/ml (0-14) 06/21/22 10:00 Total Protein 7.4 gm/dl (6.0-8.3) 06/21/22 10:00 Albumin 4.1 gm/dl (3.4-5.0) 06/21/22 10:00 Globulin 3.3 gm/dl (2.5-4.0) 06/21/22 10:00 Albumin/Globulin Ratio 1.2 (0.9-2) 06/21/22 10:00 Urine Color Yellow 06/21/22 11:30 Urine Appearance Clear (Clear) 06/21/22 11:30 Urine pH 5.0 (4.5-7.5) 06/21/22 11:30 Ur Specific [place] 1.009 (1.000-1.030) 06/21/22 11:30 Urine Protein Negative (Negative) 06/21/22 11:30 Urine Glucose (UA) Negative (Negative) 06/21/22 11:30 Urine Ketones Negative (Negative) 06/21/22 11:30 Urine Blood Negative (Negative) 06/21/22 11:30 Urine Nitrite Negative (Negative) 06/21/22 11:30 Urine Bilirubin Negative (Negative) 06/21/22 11:30 Urine Urobilinogen Negative (Negative) 06/21/22 11:30 Ur Leukocyte Esterase Negative (Negative) 06/21/22 11:30 SARS-CoV-2, RNA, NAAT NEGATIVE (NEGATIVE) 06/21/22 10:05 Impressions Chest X-Ray 06/21/22 09:54 SINGLE VIEW CHEST CLINICAL HISTORY: Strokelike symptoms. FINDINGS: An AP, portable, upright chest radiograph is correlated with chest CT to study dated 04/22/2022. The examination is degraded by portable technique and apical lordotic positioning. The patient is status post midline sternotomy and cardiac valve surgery. The heart is mildly enlarged noting atherosclerotic calcification of the thoracic aorta. The pulmonary vasculature is noncongested. Chronic interstitial thickening is similar to previous. 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 There is bibasilar scarring/atelectasis. No airspace consolidation or large pleural effusion is identified. No pneumothorax is seen. The skeletal structures are osteopenic. There are chronic right-sided rib fractures. Degenerative change is noted in the shoulders. IMPRESSION: Cardiomegaly with no acute cardiopulmonary abnormality identified. ACT 112: Negative or not required by law. Electronically signed by: Jose Monroy M.D. 06/21/2022 10:[address] 06/21/22 09:[address] OF THE BRAIN; CT ANGIOGRAM OF THE BRAIN; CT ANGIOGRAM OF THE NECK CLINICAL HISTORY: Strokelike symptoms. Change in mental status. COMPARISON STUDY: Chest CT dated 04/22/2022. TECHNIQUE: Unenhanced axial CT scan of the brain is performed. Subsequently, following the IV administration of 120 of Optiray 320, CT angiogram of the head and neck was performed from the aortic arch to the vertex. Images are reviewed in the axial, sagittal, and coronal planes. 3-D MIPS images are created and assessed. IV contrast was administered without complication. All measurements were calculated based on NASCET criteria. A dose lowering technique was utilized adhering to the principles of ALARA. CT DOSE: 1086.72 mGy.cm FINDINGS: Brain parenchyma: There is age-related involutional change noting moderate to advanced confluent subcortical and periventricular microangiopathic disease. There is no hemorrhage, mass effect, or evidence of acute territorial ischemia by CT criteria. There is no evidence of enhancing mass lesion on the angiogram phase images. The ventricles, sulci, and cisterns are prominent secondary to involutional change. Diallo-white matter differentiation is preserved. No extra-ax ial fluid collection is seen. Thoracic aorta: There is atherosclerotic calcification of the thoracic aorta. Visualized portions of the thoracic aorta are normal in caliber. The aortic arch demonstrates standard 3-vessel anatomy. Right carotid arterial system: The right common carotid artery is widely patent, as are the right internal and external carotid arteries. Calcified plaque is noted in the carotid bulb. Left carotid arterial system: The left common carotid artery is widely patent, as are the left internal and external carotid arteries. Calcified plaque is noted in the carotid bulb. Vertebral arteries: The vertebral arteries are widely patent bilaterally and codominant. Subclavian arteries: Widely patent bilaterally. Atherosclerotic calcification is noted at the origin of the left subclavian artery. Intracranial vasculature: There is atherosclerotic calcification of the cavernous carotid arteries. The internal carotid arteries are patent at the skull base, as are the anterior and middle cerebral arteries bilaterally. The vertebrobasilar system and posterior cerebral arteries are widely patent. The vertebral arteries are codominant. There is no aneurysm, high-grade stenosis, or focal vessel cut off seen throughout the intracranial circulation. Jugular veins: Patent bilaterally. Dural sinuses: Patent. Lung apices: A 7 mm left upper lobe nodule is seen on image #59. Upper lobe lung parenchyma is otherwise clear as imaged. Soft tissues: The visualized pharyngeal soft tissues are normal in appearance noting angiographic phase technique. The oropharyngeal airway appears widely patent. The thyroid gland is mildly enlarged and heterogeneous. The salivary glands are normal in appearance. No cervical lymphadenopathy is seen. Skeletal structures: The skeletal structures are osteopenic. The calvarium appears intact. The cervical spine is maintained noting multilevel spondylosis. No lytic or blastic lesion is seen. Midline sternotomy wires are observed. Orbits: The bony orbits are intact. Orbital contents are normal as visualized noting bilateral ocular lens implants. Sinuses and mastoids: The paranasal sinuses are clear. The mastoid air cells are well pneumatized. IMPRESSION: 1. There is no hemorrhage, mass effect, or evidence of acute territorial ischemia by CT criteria. 2. Unremarkable CT angiogram of the brain. 3. Unremarkable CT angiogram of the neck. 4. There is an irregular 7 mm left upper lobe pulmonary nodule. This is new from the 04/22/[address] and likely inflammatory. Any follow-up should be based on clinical grounds. ACT 112: Negative or not required by law. Electronically signed by: Jose Monroy M.D. 06/21/2022 12:37 PM Head CTA 06/21/22 09:[address] OF THE BRAIN; CT ANGIOGRAM OF THE BRAIN; CT ANGIOGRAM OF THE NECK CLINICAL HISTORY: Strokelike symptoms. Change in mental status. COMPARISON STUDY: Chest CT dated 04/22/2022. TECHNIQUE: Unenhanced axial CT scan of the brain is performed. Subsequently, following the IV administration of 120 of Optiray 320, CT angiogram of the head and neck was performed from the aortic arch to the vertex. Images are reviewed in the axial, sagittal, and coronal planes. 3-D MIPS images are created and assessed. IV contrast was administered without complication. All measurements were calculated based on NASCET criteria. A dose lowering technique was utilized adhering to the principles of ALARA. CT DOSE: 1086.72 mGy.cm FINDINGS: Brain parenchyma: There is age-related involutional change noting moderate to advanced confluent subcortical and periventricular microangiopathic disease. There is no hemorrhage, mass effect, or evidence of acute territorial ischemia by CT criteria. There is no evidence of enhancing mass lesion on the angiogram phase images. The ventricles, sulci, and cisterns are prominent secondary to involutional change. Diallo-white matter differentiation is preserved. No extra-axial fluid collection is seen. Thoracic aorta: There is atherosclerotic calcification of the thoracic aorta. Visualized portions of the thoracic aorta are normal in caliber. The aortic arch demonstrates standard 3-vessel anatomy. Right carotid arterial system: The right common carotid artery is widely patent, as are the right internal and external carotid arteries. Calcified plaque is noted in the carotid bulb. Left carotid arterial system: The left common carotid artery is widely patent, as are the left internal and external carotid arteries. Calcified plaque is noted in the carotid bulb. Vertebral arteries: The vertebral arteries are widely patent bilaterally and codominant. Subclavian arteries: Widely patent bilaterally. Atherosclerotic calcification is noted at the origin of the left subclavian artery. Intracranial vasculature: There is atherosclerotic calcification of the cavernous carotid arteries. The internal carotid arteries are patent at the skull base, as are the anterior and middle cerebral arteries bilaterally. The vertebrobasilar system and posterior cerebral arteries are widely patent. The vertebral arteries are codominant. There is no aneurysm, high-grade stenosis, or focal vessel cut off seen throughout the intracranial circulation. Jugular veins: Patent bilaterally. Dural sinuses: Patent. Lung apices: A 7 mm left upper lobe nodule is seen on image #59. Upper lobe lung parenchyma is otherwise clear as imaged. Soft tissues: The visualized pharyngeal soft tissues are normal in appearance noting angiographic phase technique. The oropharyngeal airway appears widely patent. The thyroid gland is mildly enlarged and heterogeneous. The salivary glands are normal in appearance. No cervical lymphadenopathy is seen. Skeletal structures: The skeletal structures are osteopenic. The calvarium appears intact. The cervical spine is maintained noting multilevel spondylosis. No lytic or blastic lesion is seen. Midline sternotomy wires are observed. Orbits: The bony orbits are intact. Orbital contents are normal as visualized noting bilateral ocular lens implants. Sinuses and mastoids: The paranasal sinuses are clear. The mastoid air cells are well pneumatized. IMPRESSION: 1. There is no hemorrhage, mass effect, or evidence of acute territorial ischemia by CT criteria. 2. Unremarkable CT angiogram of the brain. 3. Unremarkable CT angiogram of the neck. 4. There is an irregular 7 mm left upper lobe pulmonary nodule. This is new from the 04/22/[address] and likely inflammatory. Any follow-up should be based on clinical grounds. ACT 112: Negative or not required by law. Electronically signed by: Jose Monroy M.D. 06/21/2022 12:37 PM Neck CTA 06/21/22 09:[address] OF THE BRAIN; CT ANGIOGRAM OF THE BRAIN; CT ANGIOGRAM OF THE NECK CLINICAL HISTORY: Strokelike symptoms. Change in mental status. COMPARISON STUDY: Chest CT dated 04/22/2022. TECHNIQUE: Unenhanced axial CT scan of the brain is performed. Subsequently, following the IV administration of 120 of Optiray 320, CT angiogram of the head and neck was performed from the aortic arch to the vertex. Images are reviewed in the axial, sagittal, and coronal planes. 3-D MIPS images are created and assessed. IV contrast was administered without complication. All measurements were calculated based on NASCET criteria. A dose lowering technique was utilized adhering to the principles of ALARA. CT DOSE: 1086.72 mGy.cm FINDINGS: Brain parenchyma: There is age-related involutional change noting moderate to advanced confluent subcortical and periventricular microangiopathic disease. There is no hemorrhage, mass effect, or evidence of acute territorial ischemia by CT criteria. There is no evidence of enhancing mass lesion on the angiogram phase images. The ventricles, sulci, and cisterns are prominent secondary to involutional change. Diallo-white matter differentiation is preserved. No extra- axial fluid collection is seen. Thoracic aorta: There is atherosclerotic calcification of the thoracic aorta. Visualized portions of the thoracic aorta are normal in caliber. The aortic arch demonstrates standard 3-vessel anatomy. Right carotid arterial system: The right common carotid artery is widely patent, as are the right internal and external carotid arteries. Calcified plaque is noted in the carotid bulb. Left carotid arterial system: The left common carotid artery is widely patent, as are the left internal and external carotid arteries. Calcified plaque is noted in the carotid bulb. Vertebral arteries: The vertebral arteries are widely patent bilaterally and codominant. Subclavian arteries: Widely patent bilaterally. Atherosclerotic calcification is noted at the origin of the left subclavian artery. Intracranial vasculature: There is atherosclerotic calcification of the cavernous carotid arteries. The internal carotid arteries are patent at the skull base, as are the anterior and middle cerebral arteries bilaterally. The vertebrobasilar system and posterior cerebral arteries are widely patent. The vertebral arteries are codominant. There is no aneurysm, high-grade stenosis, or focal vessel cut off seen throughout the intracranial circulation. Jugular veins: Patent bilaterally. Dural sinuses: Patent. Lung apices: A 7 mm left upper lobe nodule is seen on image #59. Upper lobe lung parenchyma is otherwise clear as imaged. Soft tissues: The visualized pharyngeal soft tissues are normal in appearance noting angiographic phase technique. The oropharyngeal airway appears widely patent. The thyroid gland is mildly enlarged and heterogeneous. The salivary glands are normal in appearance. No cervical lymphadenopathy is seen. Skeletal structures: The skeletal structures are osteopenic. The calvarium appears intact. The cervical spine is maintained noting multilevel spondylosis. No lytic or blastic lesion is seen. Midline sternotomy wires are observed. Orbits: The bony orbits are intact. Orbital contents are normal as visualized noting bilateral ocular lens implants. Sinuses and mastoids: The paranasal sinuses are clear. The mastoid air cells are well pneumatized. IMPRESSION: 1. There is no hemorrhage, mass effect, or evidence of acute territorial ischemia by CT criteria. 2. Unremarkable CT angiogram of the brain. 3. Unremarkable CT angiogram of the neck. 4. There is an irregular 7 mm left upper lobe pulmonary nodule. This is new from the 04/22/[address] and likely inflammatory. Any follow-up should be based on clinical grounds. ACT 112: Negative or not required by law. Electronically signed by: Jose Monroy M.D. 06/21/2022 12:37 PM Medications Administered Current Inpatient Medications Albuterol (Albuterol Hfa 8 Gm Inhaler) 2 puffs INH Q6R PRN; Protocol PRN Reason: Congestion Stop: 07/21/22 16:58 Aspirin (Aspirin 81 Mg Ectab) 81 mg PO QAM JENNIFER Stop: 07/22/22 08:59 Last Admin: 06/22/22 09:11 Dose: 81 mg Docusate Sodium (Docusate Sodium 100 Mg Cap) 100 mg PO QAM JENNIFER Stop: 07/22/22 08:59 Last Admin: 06/22/22 09:11 Dose: 100 mg Fluticasone/Vilanterol (Fluticasone/Vilanterol 200/25mcg 14 Puffs/Inhaler) 1 puffs INH HS JENNIFER Stop: 07/21/22 20:59 Last Admin: 06/21/22 20:29 Dose: 1 puffs Heparin Sodium (Porcine) (Heparin Sod 5,000 Unit/0.5 Ml Vial) 5,000 units SQ Q12 JENNIFER Stop: 07/21/22 20:59 Last Admin: 06/22/22 09:15 Dose: 5,000 units Levothyroxine Sodium (Levothyroxine Sodium 150 Mcg Tablet) 150 mcg PO DAILYBB JENNIFER Stop: 07/22/22 06:29 Last Admin: 06/22/22 06:00 Dose: 150 mcg Losartan Potassium (Losartan Potassium 50 Mg Tab) 100 mg PO QAM JENNIFER Stop: 07/22/22 08:59 Last Admin: 06/22/22 09:11 Dose: 100 mg Metoprolol Tartrate (Metoprolol Tartrate 25 Mg Tab) 12.5 mg PO BID JENNIFER Stop: 07/21/22 20:59 Last Admin: 06/22/22 09:14 Dose: 12.5 mg Miscellaneous (Order Awaiting Action) 1 each N/A QS [facility] Stop: 07/22/22 00:00 Last Admin: 06/22/22 07:43 Dose: Not Given Multivitamins (Multivitamin Tab) 1 tab PO QAM [facility] Stop: 07/22/22 08:59 Last Admin: 06/22/22 09:11 Dose: 1 tab Multivitamins/Minerals (Calcium 600mg + Vit D 400 Iu Tab) 1 tab PO QAM [facility] Stop: 07/22/22 08:59 Last Admin: 06/22/22 09:11 Dose: 1 tab Pantoprazole Sodium (Pantoprazole 40 Mg Tab) 40 mg PO [facility]; Protocol Stop: 07/21/22 20:59 Last Admin: 06/21/22 20:27 Dose: 40 mg
--- NOTE | 2022-06-22 12:08 | Neurology Consultation ---
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 Labs and CT head/CTA head and neck reassuring. Follow up with Neuro as needed. (2) Acute alteration in mental status: History of Present Illness Reason for Consultation: Episode of confusion Attending Physician: Bear Garner MD History of Present Illness An 86 year old woman admitted with episode or transient confusion. Noted to be confused yesterday morning by daughter upon awakening. Disoriented in the morning to location. She did take Ativan prior for as needed anxiety. Has history of depression. WAs admitted to observation to exclude stroke or othter infectious etiology. Psychiatry was consulted and recommended avoiding benzodiazepines as likely culprit. Symptoms have resolved. Allergies Allergy/AdvReac Type Severity Reaction Status Date / Time lisinopril Allergy Intermediate Cough Verified 06/21/22 15:18 Sulfa (Sulfonamide Allergy Intermediate Rash Verified 06/21/22 15:18 Antibiotics) tramadol Allergy Intermediate restless Verified 06/21/22 15:18 clonazepam [From Klonopin] Allergy Unknown Unknown Verified 06/21/22 15:18 mepivacaine [From Carbocaine] AdvReac Intermediate crying Verified 06/21/22 15:18 Home Medications Medication Instructions Recorded Confirmed Type albuterol sulfate 90 mcg/actuation 2 puff inhalation Q6H PRN 02/13/22 06/21/22 History aerosol inhaler (ProAir HFA) Congestion aspirin 81 mg tablet,delayed 81 mg PO QAM 02/13/22 06/21/22 History release calcium carbonate 600 mg-vitamin 1 tab PO QAM 02/13/22 06/21/22 History D3 10 mcg (400 unit) tablet (Calcium 600 + D(3)) docusate sodium 100 mg capsule 100 mg PO QAM 02/13/22 06/21/22 History (Colace) fluticasone furoate 200 1 inh inhalation HS 02/13/22 06/21/22 History mcg-vilanterol 25 mcg/dose inhalation powder (Breo Ellipta) furosemide 40 mg tablet (Lasix) 40 mg PO QAM 02/13/22 06/21/22 History hydrocodone 5 mg-acetaminophen 325 1 tab PO Q4H PRN Pain 02/13/22 06/21/22 History mg tablet levothyroxine 150 mcg tablet 150 mcg PO QAM 02/13/22 06/21/22 History losartan 100 mg tablet 100 mg PO QAM 02/13/22 06/21/22 History metoprolol tartrate 25 mg tablet 12.5 mg PO BID 02/13/22 06/21/22 History multivitamin 1 tab PO QAM 02/13/22 06/21/22 History omeprazole 40 mg capsule,delayed 40 mg PO HS 02/13/22 06/21/22 History release potassium chloride 10 mEq 10 meq PO QAM 02/13/22 06/21/22 History capsule,extended release pramipexole 1 mg tablet 1 mg PO BID 02/13/22 06/21/22 History trazodone 100 mg tablet 100 mg PO HS 02/13/22 06/21/22 History vit C 250 mg-vit E 90 mg-zinc 40 1 tab PO QAM 02/13/22 06/21/22 History mg-copper 1 [id number] capsule (PreserVision AREDS-2) Patient History Medical History Anemia Anxiety Asthma rare res inh use per pt Chronic obstructive pulmonary disease rare res inh use per pt Diverticular disease Esophagitis GERD (gastroesophageal reflux disease) Hyperlipidemia borderline per pt Hypertension Hypothyroidism Osteoarthritis Rheumatoid arthritis Slow to wake up after anesthesia Surgical History History of aortic valve repair 2016 per pt History of appendectomy History of carpal tunnel release left History of cataract surgery LEFT History of cholecystectomy History of colonoscopy History of esophagogastroduodenoscopy (EGD) History of hysterectomy History of tonsillectomy History of tooth extraction History of total knee replacement left Hx of foot surgery right Family History Daughter Slow to wake up after anesthesia Social History Smoking Status: Never smoker Second Hand Exposure: No; Hx Alcohol Use: No Hx Substance Use: No Preferred Language: Gabonese Communication Ability: Effective Electrophysiology Tech Required: No Beliefs That Will Affect Care: None marital status: Current Living Situation: Alone Feels Safe at Home: Yes Assistive Devices: Cane Physical Exam Physical Exam: EXAM: Constitutional: appearance normally developed Face: normocephalic and atraumatic Eyes: normal lids, normal conjunctiva Neck: supple Respiratory: normal effort Cardiovascular: normal pulses Abdomen: non distended Skin: no rashes, lesions, or ulcers noted Psychiatric: normal mood and normal affect NEUROLOGIC EXAMINATION: Appearance: no acute distress Orientation: awake, alert and oriented x 3 Mental Status: alert Attention: normal Knowledge: appropriate Language: no aphasia Speech: no dysarthria Cranial Nerves: CN 2 - no visual defect on confrontation and pupils round, equal, reactive to light CN 3, 4, 6 - extra-ocular movements intact CN 5 - facial sensation intact CN 7 - no facial asymmetry CN 8 - intact hearing CN 9, 10 - palate symmetric CN 11 - good shoulder shrug CN 12 - tongue midline Gait: stable, no ataxia and can perform tandem walking Coordination: no ataxia with finger to nose testing Sensory: intact and symmetric to light touch Muscle Tone: normal Muscle exam: Reflexes: Results & Data ([facility]) Vital Signs (Past 12 Hours) Vital Signs Temp Pulse Resp BP BP Pulse Ox O2 Del Method 06/22/22 11:07 37.0 C 62 18 110/68 92 Room Air 06/22/22 09:15 36.8 C 74 16 117/59 L 92 Room Air 06/22/22 02:55 36.4 C L 76 20 150/79 H 95 Room Air Laboratory Results CBC, CMP Normal UA Negative Covid [address] head and CTA head and neck: 1. There is no hemorrhage, mass effect, or evidence of acute territorial ischemia by CT criteria. 2. Unremarkable CT angiogram of the brain. 3. Unremarkable CT angiogram of the neck.
--- NOTE | 2022-06-22 16:33 | Discharge Summary ---
Date of Service June 22, 2022 Admission HPI Per Admitting Provider She is an 86 years old female with significant past medical history of moderate persistent asthma, status post aortic valve replacement, restless leg syndrome, hypertension, depression, osteoarthritis and bilateral hearing loss apparently was noted to be very confused by the daughter this morning. She woke up this morning and she did not know why or what she and whether she was in [place] or in someone else. She cannot remember whether she has had a breakfast after coming to the emergency room. She even forgot that her daughter brought her into the emergency room. She denies any problem with speech, vision, denies any numbness and or tingling in the extremities, any weakness involving any side of the body. She does not have any problem with urine or bowel habit and no history of fever, chills, chest pain, palpitation or any shortness of breath. She remained pleasantly confused in the emergency room without any acute distress and apparent investigations came back negative. She was admitted to [facility] telemetry unit for continuation of care. Admission Exam Per Admitting Provider Physical Exam: Lying in bed comfortably Constitutional: well developed, well nourished and average body habitus; not ill appearing Eyes: PERRL, conjunctivae normal, anicteric sclerae ENMT: external ear and nose normal, oropharynx normal Neck: trachea midline, no thyromegaly Respiratory: no respiratory distress Auscultation: lungs clear to auscultation bilaterally Cardiovascular: Rate/Rhythm: regular rate and regular rhythm; not tachycardic Heart Sounds: normal S1 and normal S2; no murmur Extremities: no edema Gastrointestinal (Abdomen): Inspection/Auscultation: normal bowel sounds; abdomen not distended Percussion/Palpation: abdomen soft; abdomen nontender Musculoskeletal: Has osteoarthritic changes involving the hands and the feet but without any acute arthritis in any joint Neurologic: Alert and awake. Pleasantly confused. No focal sensory and motor deficit appreciated Lymphatic: no cervical or axillary lymphadenopathy Principal Diagnosis medication associated delerium Discharge Exam Constitutional WD/WN, vitals as above Eyes PERRL, conjunctivae normal, anicteric sclerae ENMT external ear and nose normal, oropharynx normal Respiratory normal respiratory effort, lungs clear to auscultation Cardiovascular RRR, no murmur, no edema Chest (Breasts) normal inspection/palpation of breasts Gastrointestinal (Abdomen) normal bowel sounds, soft, nontender, no hepatosplenomegaly Musculoskeletal no cyanosis or clubbing, extremities motor strength 5/5 Skin no rashes, warm and dry Neurologic patellar DTR's 2+ bilat, sensation intact and PERRL, EOMI, accommodation nl, no face palsy, no dysarthria Psychiatric A+Ox3, euthymic affect Discharge Data Allergies Allergy/AdvReac Type Severity Reaction Status Date / Time lisinopril Allergy Intermediate Cough Verified 06/21/22 15:18 Sulfa (Sulfonamide Allergy Intermediate Rash Verified 06/21/22 15:18 Antibiotics) tramadol Allergy Intermediate restless Verified 06/21/22 15:18 clonazepam [From Klonopin] Allergy Unknown Unknown Verified 06/21/22 15:18 mepivacaine [From Carbocaine] AdvReac Intermediate crying Verified 06/21/22 15:18 Consultations 06/21/22 13:12 ED Decision to Admit Stat 06/21/22 14:02 Consult Neurology Routine 06/22/22 09:00 Consult Psychiatry Routine Ordered Studies 06/21/22 09:54 CT angio head w con Stat CT angio neck with con Stat CT head/brain wo con Stat Hospital Course (1) Acute confusion: History of depression has not been on any medication due to cost - just recently finished Cymbalta taper She was brought into the emergency room with acute confusion since this morning without any other associated symptoms No infection noted and doubt any TIA and/or strokelike presentation Will continue with stroke rule out investigation - not likely - TTE showed G1DD as well as moderate , moderate to severe MR and left atrial enlargement. Could be secondary to use of narcotics and or benzodiazepines which will be on hold - most likely - seen by behavioral health who believes this is delirium due to Ativan and should be discontinued - stop Ativan and use trazodone for sleep disturbance - consider mirtazapine for sleep and depression as well (2) Moderate persistent asthma in adult without complication: We will continue current medications No apparent exacerbation (3) Hypertension: Continue current antihypertensive medication (4) Hypothyroidism: Continue supplement (5) Osteoarthritis: Noted to have osteoarthritis/rheumatoid arthritis No acute exacerbation no acute arthritis (6) History of aortic valve repair: No acute issues (7) Depression: Recently finished taper for cymbalta Cannot afford that medications anymore and not been taking any Has been on trazodone mainly to sleep (8) GERD (gastroesophageal reflux disease): Continue PPI DVT prophylaxis Subcu heparin CODE STATUS Full Bear Garner MD [facility] Medicine Total Time Total Time Spent Total Time Spent (In Minutes): 27 minutes Total Time Includes: Examination of the Patient, Discharge Planning, Medication Reconciliation and Communication With Other Providers Discharge Plan Discharge Items Patient Disposition: Home - Self-Care Reason For Visit: ACUTE CONFUSION, R/O TIA/STROKE Discharge Diagnosis: medication associated delerium Activity: Resume your previous activity Non-emergency contact: Primary Care Provider and Psychiatrist Call non-emergency contact if: you have any medication questions and your sym ptoms worsen Follow-up/Referrals: Jason Tejeda MD [Primary Care Provider] - Diet: Heart Healthy Addtl Attending Provider Instructions: You were admitted for an acute episode of confusion yesterday morning. On evaluation, you had a CT of you neck and head with contrast with no evidence of stroke. You had an EKG and echocardiogram which snowed no significant abnormalities to explain your symptoms. Infection was ruled out and neurology did not believe there was any other neurologic issue causing this episode. Per the history obtain from you by the psychiatrist and neurologist, you may have taken Ativan, which you had been prescribed in the past. This can cause delirium in elderly people and should be avoided. You can follow up with your primary care doctor and psychiatrist about other medications for sleep including Trazodone or mirtazapine that can both help with depression and sleep. Pending Studies at Discharge: No Stand-Alone Forms: [employer], Smoking Cessation Medications and DC Order Prescriptions: Continued multivitamin Tablet 1 tab PO QAM pramipexole 1 mg Tablet 1 mg PO BID Rx Instructions: take at 4pm & hs furosemide [Lasix] 40 mg Tablet 40 mg PO QAM potassium chloride 10 mEq Capsule, Extended Release 10 meq PO QAM hydrocodone-acetaminophen 5-325 mg Tablet 1 tab PO Q4H PRN (Reason: Pain) omeprazole 40 mg Capsule,Delayed Release(Dr/Ec) 40 mg PO HS aspirin 81 mg Tablet,Delayed Release (Dr/Ec) 81 mg PO QAM trazodone 100 mg Tablet 100 mg PO HS levothyroxine 150 mcg Tablet 150 mcg PO QAM docusate sodium [Colace] 100 mg Capsule 100 mg PO QAM albuterol sulfate [ProAir HFA] 90 mcg/actuation Hfa Aerosol Inhaler 2 puff INHALATION Q6H PRN (Reason: Congestion) losartan 100 mg Tablet 100 mg PO QAM metoprolol tartrate 25 mg Tablet 12.5 mg PO BID calcium carbonate-vitamin D3 [Calcium 600 + D(3)] 600 mg-10 mcg (400 unit) Tablet 1 tab PO QAM PreserVision AREDS-2 250-90-40-1 mg Capsule 1 tab PO QAM fluticasone furoate-vilanterol [Breo Ellipta] 200-25 mcg/dose Blister With Device 1 inh INHALATION HS Discontinued lorazepam 0.5 mg Tablet 0.5 mg PO BID PRN (Reason: Anxiety) duloxetine 60 mg Capsule,Delayed Release(Dr/Ec) 60 mg PO Q OTHER DAY Discharge Orders: Discharge Order (Routine); Ordered 06/22/22 Ordered By: Bear Garner Admission Data Admit Date/Time: 06/21/22 14:02 Attending Provider: Bear Garner Admit Provider: Martha Metcalf Primary Care Provider: Jason Tejeda Other Providers: Martha Metcalf ; Lindsey Lorenzana ; Naif Silva ; Lindsey Cordero ; Luis Armando Pack ; Cari Roberts ; Aura Malik ; Heather Delgado ; Myriam Reyes
== END 2022-06-22 18:00 | disposition home or self-care (01) | DRG 948 ==
LOC: ED 09:28 → 2N 14:02 → SUATTDRO 14:02 → 2N 15:57

== ENCOUNTER 2025-07-02 15:45 | Inpatient (IN) ==
--- NOTE | 2025-07-02 16:32 | Emergency Department Note ---
Impression & Plan Bilateral lower extremity edema, CHF (congestive heart failure) ED Provider Note NAME: JOSE A CONDON AGE: 89 SEX: Female INFORMANT: Patient and daughter ED PROVIDER(S): Naif Guadalupe MD CHIEF COMPLAINT: Leg swelling PLAN: Disposition: Admitted Outpatient prescription management: none Referral: None MEDICAL DECISION MAKING: Patient presented because of lower extremity edema. Workup initiated. CBC and chemistry panel was unremarkable. Patient did have a slight elevation of cardiac troponin and BNP. Chest x-ray shows some congestive changes and the patient does have a negative ultrasound of the lower extremities for DVT. She was treated with IV Lasix. Discussed treatment options with the patient and daughter. Inpatient treatment was felt to be most appropriate.. [facility] Patient was evaluated in the ER and admitted for further management. Care/management discussed with: case manager Level of care consideration(s): After review of the information above and other included data, I feel the patient requires escalation of care to [facility] Triage Nursing notes: reviewed and agree them. Vital Signs: reviewed and remarkable for no significant abnormalities Additional History obtained from: Patient and daughter Chronic Medical/Social Conditions affecting care: CHF Prior/ Outside/ External records reviewed: none Differential Diagnosis: CHF, DVT, musculoskeletal, infection, joint effusion, trauma, lymphedema, idiopathic, as well as other pathologies. Diagnostics, independently interpreted by me: ECG: Twelve-lead ECG reveals a sinus rhythm with short VT at 70 bpm. Right bundle branch block and left posterior fascicular block present. When compared to 12 May 2025 there is no change. Cardiac Monitoring: Cardiac monitoring ordered by me: The patient was placed on continuous cardiac monitoring and observed. It revealed a sinus rhythm at 72 bpm. Medical decision rules: none Imaging studies: Chest x-ray reveals findings consistent with mild CHF. I refer you to the EMR for further details. HPI: 89 year old Female arrives for evaluation of lower extremity edema. This started 2 days ago and is mostly in the ankles and feet bilaterally. The patient also notes the following associated symptoms, feeling tired. The patient has taken no medication for relieving factors. Current pain is rated as 5/10. Patient states that she has chronic pain in her right knee. She is pending orthopedic evaluation. Pt denies LOC, headache, fevers, chills, diaphoresis, visual changes, neck pain, chest pain, breathing difficulties, nausea, vomiting, abdominal pain, back pain, melena, hematochezia, urinary symptoms, numbness, weakness, lymphadenopathy, rash, or other complaints.. PAST MEDICAL HISTORY: See Below, CHF PAST SURGICAL HISTORY: See Below, SOCIAL HISTORY: Retired, see below HOME MEDICATIONS: See Below ALLERGIES: See Below VITALS: See Below PHYSICAL EXAMINATION: GENERAL: Awake, alert, well-appearing, in no distress HENT: Normocephalic, atraumatic. Oropharynx unremarkable. EYES: Normal conjunctiva. Sclera non-icteric. NECK: Inspection normal. Non-tender. Supple. No nuchal rigidity. FROM. No masses. RESPIRATORY: Clear to auscultation. No wheezes. No rales. Normal respiratory effort. CARDIAC: Normal rate. Normal rhythm. Systolic ejection murmurs. No rubs. Extremities warm and well perfused. Pulses equal. No JVD. GI: Soft, non-distended. No tenderness to palpation. No rebound or guarding. No masses. RECTAL: Deferred. MUSCULOSKELETAL: Atraumatic. Chest examination reveals no tenderness. The back is symmetrical on inspection without obvious abnormality. There is no CVA tenderness to palpation. No joint edema. LOWER EXTREMITIES: Calves are equal size bilaterally and non-tender. 2+ pedal edema. No discoloration. NEURO: Normal sensorium. No sensory or motor deficits noted. SKIN: No rash or jaundice noted. PROCEDURES: none CRITICAL CARE: none OBSERVATION NOTE: none Past Med/Surg History Problem List (Updated 07/03/25 @ 02:06 by Naif Guadalupe MD) CHF (congestive heart failure) (Acute) Bilateral lower extremity edema (Acute) Restless leg syndrome Anxiety Lopez's cyst of knee Abnormal chest CT Pulmonary hypertension Acute on chronic heart failure with preserved ejection fraction Depression Hypothyroidism Hypertension Moderate persistent asthma in adult without complication Medical History (Updated 07/03/25 @ 02:06 by Naif Guadalupe MD) Iron deficiency anemia Vascular malformation Bilateral edema of lower extremity CHF exacerbation Acute on chronic diastolic (congestive) heart failure COVID-19 Insomnia Delirium due to dissociative drug from lorazepam 0.5mg pill Encounter for pre-operative examination Osteoarthritis GERD (gastroesophageal reflux disease) Acute alteration in mental status Slow to wake up after anesthesia Rheumatoid arthritis Esophagitis Diverticular disease Anemia Hyperlipidemia borderline per pt Chronic obstructive pulmonary disease rare res inh use per pt Asthma rare res inh use per pt Surgical History (Updated 05/16/25 @ 15:23 by FLAVIO Odell) H/O aortic valve replacement History of cataract surgery LEFT Hx of foot surgery right History of carpal tunnel release left History of total knee replacement left History of esophagogastroduodenoscopy (EGD) History of colonoscopy History of hysterectomy History of appendectomy History of tooth extraction History of cholecystectomy History of tonsillectomy History of aortic valve repair 2016 per pt Family History Daughter Slow to wake up after anesthesia Social History Smoking Status: Never smoker Second Hand Exposure: No; Do You Dip or Chew Tobacco: No; Tobacco Cessation Education Requested by Patient: No Hx Alcohol Use: No Hx Substance Use: No Preferred Language: Hungarian Communication Ability: Impaired District Fire Chief Required: No Beliefs That Will Affect Care: None marital status: Current Living Situation: Family Current Living Situation Comment: daughter Other Information That Helps Us Care for You: No Feels Safe at Home: Yes Safety Concerns: Feels Safe At This Time Assistive Devices: Cane and Walker Allergies Allergies Allergy/AdvReac Type Severity Reaction Status Date / Time Sulfa (Sulfonamide Allergy Intermediate Rash Verified 07/02/25 16:04 Antibiotics) clonazepam [From Klonopin] Allergy Unknown ON Verified 07/02/25 16:04 [facility] codeine Allergy Unknown ON Verified 07/02/25 16:04 [facility] lisinopril AdvReac Intermediate Cough Verified 07/02/25 16:04 mepivacaine [From Carbocaine] AdvReac Intermediate 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 Verified 07/02/25 16:04 SYMPTOMS tramadol AdvReac Intermediate RESTLESS Verified 07/02/25 16:04 LEGS, FATIGUE Home Meds Home Medications Medication Instructions Recorded Confirmed albuterol sulfate 90 mcg/actuation 2 puff inhalation QID PRN 05/12/25 07/02/25 aerosol inhaler Shortness Of Breath Or Wheezing aspirin 81 mg tablet,delayed 81 mg PO DAILY 05/12/25 07/02/25 release fluticasone 250 mcg-salmeterol 50 1 inh inhalation BID 05/12/25 07/02/25 mcg/dose blistr powdr for inhalation furosemide 40 mg tablet 40 mg PO DAILY 05/12/25 07/02/25 hydrocodone 5 mg-acetaminophen 325 1 tab PO TID PRN Pain 05/12/25 07/02/25 mg tablet hydroxyzine pamoate 25 mg capsule 25 mg PO DAILY 05/12/25 07/02/25 levothyroxine 150 mcg tablet 150 mcg PO DAILYBB 05/12/25 07/02/25 losartan 50 mg tablet 50 mg PO DAILY 05/12/25 07/02/25 potassium chloride 10 mEq 10 meq PO DAILY 05/12/25 07/02/25 tablet,extended release(part/cryst) pramipexole 1 mg tablet 1 mg PO UD 05/12/25 07/02/25 trazodone 50 mg tablet 50 mg PO HS 05/12/25 07/02/25 vit C 250 mg-vit E 90 mg-zinc 40 1 tab PO DAILY 05/12/25 07/02/25 mg-copper 1 [id number] capsule (PreserVision AREDS-2) albuterol sulfate 2.5 mg/0.5 mL 2.5 mg inhalation DIRECTED PRN 07/02/25 07/02/25 solution for nebulization Shortness Of Breath Or Wheezing benzonatate 100 mg capsule 100 mg PO TID PRN Cough 07/02/25 07/02/25 calcium 600 mg (as 1 tab PO DAILY 07/02/25 07/02/25 carbonate)-vitamin D3 10 mcg (400 unit) tablet (Calcium 600 + D(3)) metoprolol succinate 25 mg 12.5 mg PO QAM 07/02/25 07/02/25 tablet,extended release 24 hr [id number] 1 tab PO DAILY 07/02/25 07/02/25 tablet (Multivitamin 50 Plus tablet) sertraline 100 mg tablet 100 mg PO HS 07/02/25 07/02/25 Previous Rx's Medication Instructions Recorded diclofenac sodium 1 % topical gel 2 g EXT DAILY PRN pain #50 grams 05/17/25 (Voltaren Arthritis Pain) spironolactone 25 mg tablet 12.5 mg (1/2 x 25 mg) PO DAILY #30 05/17/25 tabs Results & Data (ED) Vital Signs Vital Signs - 24 hr 07/02/25 15:46 07/02/25 17:46 Temperature 36.8 C Temperature Source Temporal Artery Scan Pulse Rate 77 Pulse Rate [Apical] 70 Respiratory Rate 20 20 Respiratory Effort / Characteristics Non-Labored Respiratory Depth Normal Blood Pressure 130/63 Blood Pressure [Right Arm] 127/68 Blood Pressure Mean 85 Blood Pressure Mean [Right Arm] 87 Pulse Oximetry 94 94 Oxygen Delivery Method Room Air Sepsis Recent Fever Within 48 Hours No Sepsis New/Unexplained Change in Mental Status No Sepsis Action Taken by Nursing No Action Required Laboratory Data 07/02/25 16:31 07/02/25 16:31 Lab Results 07/02/25 Range/Units 16:31 WBC 5.83 (4.8-10.8) K/ul RBC 3.35 L (4.20-5.40) M/uL Hgb 10.6 L (12.0-16.0) g/dl Hct 33.0 L (37.0-47.0) % MCV 98.5 (80.0-100.0) fL MCH 31.6 (25.0-34.0) pg MCHC 32.1 (32.0-36.0) g/dL RDW Std Deviation 53.0 H (36.4-46.3) fL RDW Coeff of Giselle 14.6 H (11.5-14.5) % Plt Count 198 (130-400) K/uL MPV 9.5 (9.4-12.4) fL Immature Gran % (Auto) 0.3 % Neut % (Auto) 66.7 % Lymph % (Auto) 18.5 % Tyler % (Auto) 9.9 % Eos % (Auto) 3.6 % Baso % (Auto) 1.0 % Neut # (Auto) 3.88 (1.40-6.50) K/uL Lymph # (Auto) 1.08 L (1.20-3.40) K/uL Tyler # (Auto) 0.58 (0.11-0.59) K/uL Eos # (Auto) 0.21 (0.00-0.50) K/uL Baso # (Auto) 0.06 (0.00-0.20) K/uL Immature Gran # (Auto) 0.02 (0.01-0.20) K/uL Sodium 140 (136-145) mmol/L Potassium 3.8 (3.5-5.1) mmol/L Chloride 101 (98-107) mmol/L Carbon Dioxide 36 H (21-32) mmol/L Anion Gap 3 (3-11) BUN 17 (6-23) mg/dl Creatinine 0.73 (0.6-1.2) mg/dl Est Cr Clr Drug Dosing Not Reportable eGFR 78.56 BUN/Creatinine Ratio 23.3 H (10-20) Glucose 110 H (70-99(Fasting)) mg/dl Calcium 8.9 (8.6-10.3) mg/dl Magnesium 1.8 (1.7-2.4) mg/dl Total Bilirubin 0.6 (0.2-1.0) mg/dl AST 26 (13-39) U/L ALT 17 (7-52) U/L Alkaline Phosphatase 126 H (34-104) U/L Troponin I High Sens 16.4 H (0-14) pg/ml B-Natriuretic Peptide 321 H (0-100) pg/ml Total Protein 6.5 (6.0-8.3) gm/dl Albumin 3.6 (3.4-5.0) gm/dl Globulin 2.9 (2.5-4.0) gm/dl Albumin/Globulin Ratio 1.2 (0.9-2) Vitamin B12 411 (180-914) pg/ml TSH 4.280 (0.300-4.500) uIu/ml Administered Medications Enoxaparin Sodium (Enoxaparin Inj 40 Mg/0.4 Ml Syr) 40 mg SQ Q24H JENNIFER Stop: 08/01/25 20:59 Last Admin: 07/02/25 20:36 Dose: 40 mg Documented By: WAYNE Folic Acid (Folic Acid 1 Mg Tab) 1 mg PO QAM JENNIFER Stop: 08/01/25 18:59 Last Admin: 07/02/25 20:32 Dose: 1 mg Documented By: WAYNE Pramipexole Dihydrochloride (Pramipexole Dihydrochlo 0.5 Mg Tab) 1 mg PO 1600,2100 JENNIFER Stop: 08/01/25 20:59 Last Admin: 07/02/25 20:32 Dose: 1 mg Documented By: WAYNE Sertraline HCl (Sertraline Hcl 100 Mg Tablet) 100 mg PO HS JENNIFER Stop: 08/01/25 20:59 Last Admin: 07/02/25 20:32 Dose: 100 mg Documented By: WAYNE Thiamine HCl (Thiamine Hcl 100 Mg Tab) 100 mg PO QAM JENNIFER Stop: 08/01/25 18:59 Last Admin: 07/02/25 20:32 Dose: 100 mg Documented By: Trazodone HCl (Trazodone Hcl 50 Mg Tab) 50 mg PO HS JENNIFER Stop: 08/01/25 20:59 Last Admin: 07/02/25 20:32 Dose: 50 mg Documented By: WAYNE Discontinued Medications Furosemide (Furosemide 40 Mg/4 Ml Vial) 40 mg IV ONE ONE Stop: 07/02/25 18:15 Last Admin: 07/02/25 20:37 Dose: Not Given Documented By: WAYNE Imaging Data Radiologist's Impression: Chest X-Ray 07/02/25 16:33 EXAM: X-ray chest one-view portable CLINICAL HISTORY: Lower extremity edema PRIORS: 05/12/2025 CT and x-ray TECHNIQUE: Frontal view chest FINDINGS: Median sternotomy wires present. postsurgical change of the mediastinum. Improved diffuse expansion of the chest noted. No confluent opacification or pleural effusion. Cardiac size is mildly enlarged, unchanged. Mild prominence of the central pulmonary vasculature. Healed right-sided rib fractures present. Atherosclerotic disease of the aortic knob noted. IMPRESSION: Overall improvement in the appearance of the chest when compared to 05/12/2025 with mild enlargement of the cardiac silhouette and prominence of the central pulmonary vasculature which could suggest mild volume overload. Electronically signed by Tanesha Kearney 07-02-2025 5:27 PM Venous Doppler Study 07/02/25 16:33 EXAMINATION: Ultrasound venous Doppler lower extremity bilateral CLINICAL HISTORY: Swelling PRIORS: 05/12/2025 TECHNIQUE: Ultrasound interrogation of the deep venous structures was performed with grayscale, color Doppler, compression and augmentation. Complex solid and soft tissue right popliteal fossa mass again noted, unchanged. FINDINGS: The bilateral common femoral, superficial femoral, saphenous, popliteal and tibial veins demonstrate normal compressibility, frequency and augmentation. IMPRESSION: 1. No sonographic evidence of deep venous thrombosis in the bilateral lower extremities. 2. Right popliteal complicated mass with calcifications, unchanged. Electronically signed by Tanesha Kearney 07-02-2025 5:58 PM Discharge Plan Visit Data Chief Complaint: Swelling/Edema to Extremity Stated Complaint: BOTH LEGS SWOLLEN ED Provider: Naif Guadalupe Discharge Problem: Bilateral lower extremity edema, CHF (congestive heart failure) Patient Disposition: Admitted As Inpatient Condition: Good Discharge Instructions Interventions: ED Discharge Assessment Last Done: 07/02/25 19:32
[2025-07-02 16:44] LABS: Hematocrit (blood only) 33.0 % (37.0-47.0); Hemoglobin 10.6 g/dl (12.0-16.0); Immature Granulocytes # (auto) 0.02 K/uL (0.01-0.20); Immature Granulocytes % (auto) 0.3 %; Mean Corpuscular Hemoglobin 31.6 pg (25.0-34.0); Mean Corpuscular Volume 98.5 fL (80.0-100.0); Platelet Count 198 K/uL (130-400); RDW Standard Deviation 53.0 fL (36.4-46.3); Red Blood Count 3.35 M/uL (4.20-5.40); White Blood Count 5.83 K/ul (4.8-10.8)
[2025-07-02 17:01] LABS: Alanine Aminotransferase 17 U/L (7-52); Albumin Globulin Ratio 1.2 (0.9-2); Alkaline Phosphatase 126 U/L (34-104); Anion Gap 3 (3-11); Bilirubin,Total 0.6 mg/dl (0.2-1.0); Blood Urea Nitrogen 17 mg/dl (6-23); Calcium 8.9 mg/dl (8.6-10.3); Carbon Dioxide 36 mmol/L (21-32); Chloride 101 mmol/L (98-107); Globulin 2.9 gm/dl (2.5-4.0); Glucose 110 mg/dl (70-99(Fasting)); Magnesium 1.8 mg/dl (1.7-2.4); Potassium 3.8 mmol/L (3.5-5.1); Sodium 140 mmol/L (136-145); Total Protein 6.5 gm/dl (6.0-8.3)
--- NOTE | 2025-07-02 17:27 | XRay Report ---
EXAM: X-ray chest one-view portable CLINICAL HISTORY: Lower extremity edema PRIORS: 05/12/2025 CT and x-ray TECHNIQUE: Frontal view chest FINDINGS: Median sternotomy wires present. postsurgical change of the mediastinum. Improved diffuse expansion of the chest noted. No confluent opacification or pleural effusion. Cardiac size is mildly enlarged, unchanged. Mild prominence of the central pulmonary vasculature. Healed right-sided rib fractures present. Atherosclerotic disease of the aortic knob noted. IMPRESSION: Overall improvement in the appearance of the chest when compared to 05/12/2025 with mild enlargement of the cardiac silhouette and prominence of the central pulmonary vasculature which could suggest mild volume overload. Electronically signed by Tanesha Kearney 07-02-2025 5:27 PM
[2025-07-02 17:54] LABS: Thyroid Stimulating Hormone 4.280 uIu/ml (0.300-4.500)
--- NOTE | 2025-07-02 17:59 | Ultrasound Report ---
EXAMINATION: Ultrasound venous Doppler lower extremity bilateral CLINICAL HISTORY: Swelling PRIORS: 05/12/2025 TECHNIQUE: Ultrasound interrogation of the deep venous structures was performed with grayscale, color Doppler, compression and augmentation. Complex solid and soft tissue right popliteal fossa mass again noted, unchanged. FINDINGS: The bilateral common femoral, superficial femoral, saphenous, popliteal and tibial veins demonstrate normal compressibility, frequency and augmentation. IMPRESSION: 1. No sonographic evidence of deep venous thrombosis in the bilateral lower extremities. 2. Right popliteal complicated mass with calcifications, unchanged. Electronically signed by Tanesha Kearney 07-02-2025 5:58 PM
--- NOTE | 2025-07-02 18:28 | History & Physical Report ---
Date of Service July 02, 2025 Assessment & Plan (1) Acute on chronic heart failure with preserved ejection fraction: (2) Restless leg syndrome: (3) Lopez's cyst of knee: (4) Pulmonary hypertension: (5) Hypothyroidism: (6) Hypertension: (7) Moderate persistent asthma in adult without complication: Plan 89 yo female with pmhx of s/p aortic valve replacement, chronic HFpEF, pulmonary hypertension, moderate persistent asthma, hypothyroidism, HTN, restless leg syndrome, osteoarthritis, bilateral hearing loss, depression who presents fatigue, leg swelling 2/2 mild decompensated HFpEF, physical decompensation. Labs reviewed - BNP marginally above age adjusted normal (89 age normal, currently 89), marginally elevated HS troponin, alk phos chronically elevated, chronically elevated bicarb, no leukocytosis. Pt's daughter is very concerned about pt's fluid status and potential recurrence of significant fluid overload that pt experienced before last admission. #Failure to Thrive in Adult #Decompensated HFpEF (EF55%) #RV Failure -BNP marginally above age adjusted normal, leg swelling -wt today 58.3 kg, wt at d/c in April 61.689 kg -fatigue likely 2/2 RV failure, on room air Plan: -start Lasix 20 IV bid (home 40 PO daily) -continue Aldactone -get daily weights, follow Is and Os -observation admission, likely discharge home pending PT/OT eval -check B12, start folic acid and thiamine #HTN #S/p Aortic Valve Replacement -continue losartan -continue aspirin -continue metoprolol xl in setting of aortic valve replacement #Hypothyroidism -continue levothyroxine #Moderate Persistent Asthma -continue Advair, prn albuterol #Restless Leg Syndrome -continue ropinirole #Depression #Anxiety -continue sertraline, trazodone -hold Atarax Pt seen and reviewed with collaborating physician, Dr. Nieto. Plan of care discussed and as outlined above. Code status: full code DVT prophylaxis: Lovenox Pt's daughter at the bedside was updated - all questions answered. Ena Sofia PA-C History of Present Illness Chief Complaint: fatigue, leg swelling Primary Care Provider: Jason Tejeda MD 89 yo female with pmhx of severe aortic stenosis s/p aortic valve replacement in 2017, chronic HFpEF, pulmonary hypertension, moderate persistent asthma, hypothyroidism, HTN, restless leg syndrome, osteoarthritis, bilateral hearing loss, depression, and other history as outlined below who presents to the ED with fatigue and increased leg swelling. Pt was most recenttly admitted 05/12- 05/17/25 for acute on chronic HFpEF, underwent IV diuresis before diuretics tra nsitioned back to po. Her weight at discharge was 61.689 kg. She followed up with cardiology on 06/15/25 and was doing well, weight that day was 56.7 kg. Pt reports that she was overall at baseline until today when she noticed her slippers were tight with increased pedal edema. She took an extra dose of furosemide but didn't notice any improvement so her daughter brought her to the ED for evaluation. She told her daughter earlier today that she didn't feel well and was more tired than usual though she reports to me at present that she feels about at her baseline. She denies any increased shortness of breath or TAN. She has not used her albuterol inhaler at all recently. She denies chest pain, palpitations, syncope, N/V, fevers, chills, sweats, recent illness. She notes increased urinary frequency but no dysuria or hematuria. Pt's daughter is at bedside and assisted with the history. She reports that pt uses canes to ambulate at home but often uses a walker when she is out of the house. In the ED, BNP marginally above age adjusted normal (89 age normal, currently 89), marginally elevated HS troponin, give lasix x1, admitted to medicine for further workup. Allergies Allergy/AdvReac Type Severity Reaction Status Date / Time Sulfa (Sulfonamide Allergy Intermediate Rash Verified 07/02/25 16:04 Antibiotics) clonazepam [From Klonopin] Allergy Unknown ON Verified 07/02/25 16:04 [facility] codeine Allergy Unknown ON Verified 07/02/25 16:04 [facility] lisinopril AdvReac Intermediate Cough Verified 07/02/25 16:04 mepivacaine [From Carbocaine] AdvReac Intermediate BLIND LACER Verified 07/02/25 16:04 SYMPTOMS tramadol AdvReac Intermediate RESTLESS Verified 07/02/25 16:04 LEGS, FATIGUE Home Medications Medication Instructions Recorded Confirmed Type albuterol sulfate 90 mcg/actuation 2 puff inhalation QID PRN 05/12/25 07/02/25 History aerosol inhaler Shortness Of Breath Or Wheezing aspirin 81 mg tablet,delayed 81 mg PO DAILY 05/12/25 07/02/25 History release fluticasone 250 mcg-salmeterol 50 1 inh inhalation BID 05/12/25 07/02/25 History mcg/dose blistr powdr for inhalation furosemide 40 mg tablet 40 mg PO DAILY 05/12/25 07/02/25 History hydrocodone 5 mg-acetaminophen 325 1 tab PO TID PRN Pain 05/12/25 07/02/25 History mg tablet hydroxyzine pamoate 25 mg capsule 25 mg PO DAILY 05/12/25 07/02/25 History levothyroxine 150 mcg tablet 150 mcg PO DAILYBB 05/12/25 07/02/25 History losartan 50 mg tablet 50 mg PO DAILY 05/12/25 07/02/25 History potassium chloride 10 mEq 10 meq PO DAILY 05/12/25 07/02/25 History tablet,extended release(part/cryst) pramipexole 1 mg tablet 1 mg PO UD 05/12/25 07/02/25 History trazodone 50 mg tablet 50 mg PO HS 05/12/25 07/02/25 History vit C 250 mg-vit E 90 mg-zinc 40 1 tab PO DAILY 05/12/25 07/02/25 History mg-copper 1 [id number] capsule (PreserVision AREDS-2) diclofenac sodium 1 % topical gel 2 g EXT DAILY PRN pain #50 grams 05/17/25 07/02/25 Rx (Voltaren Arthritis Pain) spironolactone 25 mg tablet 12.5 mg (1/2 x 25 mg) PO DAILY #30 05/17/25 07/02/25 Rx tabs albuterol sulfate 2.5 mg/0.5 mL 2.5 mg inhalation DIRECTED PRN 07/02/25 07/02/25 History solution for nebulization Shortness Of Breath Or Wheezing benzonatate 100 mg capsule 100 mg PO TID PRN Cough 07/02/25 07/02/25 History calcium 600 mg (as 1 tab PO DAILY 07/02/25 07/02/25 History carbonate)-vitamin D3 10 mcg (400 unit) tablet (Calcium 600 + D(3)) metoprolol succinate 25 mg 12.5 mg PO QAM 07/02/25 07/02/25 History tablet,extended release 24 hr [id number] 1 tab PO DAILY 07/02/25 07/02/25 History tablet (Multivitamin 50 Plus tablet) sertraline 100 mg tablet 100 mg PO HS 07/02/25 07/02/25 History Past Med/Surg History Problem List (Updated 07/02/25 @ 19:11 by Eryn Sofia PA-C) Bilateral lower extremity edema (Acute) Restless leg syndrome Anxiety Lopez's cyst of knee Abnormal chest CT Pulmonary hypertension Acute on chronic heart failure with preserved ejection fraction Depression Hypothyroidism Hypertension Moderate persistent asthma in adult without complication Medical History (Updated 07/02/25 @ 19:11 by Eryn Sofia PA-C) Iron deficiency anemia Vascular malformation Bilateral edema of lower extremity CHF exacerbation Acute on chronic diastolic (congestive) heart failure COVID-19 Insomnia Delirium due to dissociative drug from lorazepam 0.5mg pill Encounter for pre-operative examination Osteoarthritis GERD (gastroesophageal reflux disease) Acute alteration in mental status Slow to wake up after anesthesia Rheumatoid arthritis Esophagitis Diverticular disease Anemia Hyperlipidemia borderline per pt Chronic obstructive pulmonary disease rare res inh use per pt Asthma rare res inh use per pt Surgical History (Updated 05/16/25 @ 15:23 by FLAVIO Odell) H/O aortic valve replacement History of cataract surgery LEFT Hx of foot surgery right History of carpal tunnel release left History of total knee replacement left History of esophagogastroduodenoscopy (EGD) History of colonoscopy History of hysterectomy History of appendectomy History of tooth extraction History of cholecystectomy History of tonsillectomy History of aortic valve repair 2016 per pt Family History Daughter Slow to wake up after anesthesia Social History Smoking Status: Never smoker Second Hand Exposure: No; Do You Dip or Chew Tobacco: No; Hx Alcohol Use: No Hx Substance Use: No Preferred Language: Korean Communication Ability: Effective Residential Sales Rep Required: No Beliefs That Will Affect Care: None marital status: Current Living Situation: Family Current Living Situation Comment: daughter Feels Safe at Home: Yes Assistive Devices: Cane and Walker Review of Systems Review of Systems: All systems reviewed & are unremarkable except as noted in Subjective Physical Exam Physical Exam: General: awake, alert, NAD HEENT: +hard of hearing, no scleral icterus, moist oral mucosa Neck: supple, trachea midline Heart: RRR, +murmur Lungs: faint bibasilar crackles but otherwise clear, no wheezing or rhonchi Abdomen: soft, NT, +BS Extremities: trace LE edema Skin: warm, dry, no jaundice or rashes Neurologic: Ox3, no confusion or dysarthria, moving all extremities Results & Data Results & Data Vital Signs (Past 12 Hours) Vital Signs Temp Pulse Resp BP Pulse Ox O2 Del Method 07/02/25 15:46 36.8 C 77 20 130/63 94 Room Air Laboratory Results Lab Results 07/02/25 Range/Units 16:31 WBC 5.83 (4.8-10.8) K/ul RBC 3.35 L (4.20-5.40) M/uL Hgb 10.6 L (12.0-16.0) g/dl Hct 33.0 L (37.0-47.0) % MCV 98.5 (80.0-100.0) fL MCH 31.6 (25.0-34.0) pg MCHC 32.1 (32.0-36.0) g/dL RDW Std Deviation 53.0 H (36.4-46.3) fL RDW Coeff of Giselle 14.6 H (11.5-14.5) % Plt Count 198 (130-400) K/uL MPV 9.5 (9.4-12.4) fL Immature Gran % (Auto) 0.3 % Neut % (Auto) 66.7 % Lymph % (Auto) 18.5 % Parker % (Auto) 9.9 % Eos % (Auto) 3.6 % Baso % (Auto) 1.0 % Neut # (Auto) 3.88 (1.40-6.50) K/uL Lymph # (Auto) 1.08 L (1.20-3.40) K/uL Parker # (Auto) 0.58 (0.11-0.59) K/uL Eos # (Auto) 0.21 (0.00-0.50) K/uL Baso # (Auto) 0.06 (0.00-0.20) K/uL Immature Gran # (Auto) 0.02 (0.01-0.20) K/uL Sodium 140 (136-145) mmol/L Potassium 3.8 (3.5-5.1) mmol/L Chloride 101 (98-107) mmol/L Carbon Dioxide 36 H (21-32) mmol/L Anion Gap 3 (3-11) BUN 17 (6-23) mg/dl Creatinine 0.73 (0.6-1.2) mg/dl Est Cr Clr Drug Dosing Not Reportable eGFR 78.56 BUN/Creatinine Ratio 23.3 H (10-20) Glucose 110 H (70-99(Fasting)) mg/dl Calcium 8.9 (8.6-10.3) mg/dl Magnesium 1.8 (1.7-2.4) mg/dl Total Bilirubin 0.6 (0.2-1.0) mg/dl AST 26 (13-39) U/L ALT 17 (7-52) U/L Alkaline Phosphatase 126 H (34-104) U/L Troponin I High Sens 16.4 H (0-14) pg/ml B-Natriuretic Peptide 321 H (0-100) pg/ml Total Protein 6.5 (6.0-8.3) gm/dl Albumin 3.6 (3.4-5.0) gm/dl Globulin 2.9 (2.5-4.0) gm/dl Albumin/Globulin Ratio 1.2 (0.9-2) TSH 4.280 (0.300-4.500) uIu/ml Diagnostic Findings Chest X-Ray 07/02/25 16:33 EXAM: X-ray chest one-view portable CLINICAL HISTORY: Lower extremity edema PRIORS: 05/12/2025 CT and x-ray TECHNIQUE: Frontal view chest FINDINGS: Median sternotomy wires present. postsurgical change of the mediastinum. Improved diffuse expansion of the chest noted. No confluent opacification or pleural effusion. Cardiac size is mildly enlarged, unchanged. Mild prominence of the central pulmonary vasculature. Healed right-sided rib fractures present. Atherosclerotic disease of the aortic knob noted. IMPRESSION: Overall improvement in the appearance of the chest when compared to 05/12/2025 with mild enlargement of the cardiac silhouette and prominence of the central pulmonary vasculature which could suggest mild volume overload. Electronically signed by Tanesha Kearney 07-02-2025 5:27 PM Venous Doppler Study 07/02/25 16:33 EXAMINATION: Ultrasound venous Doppler lower extremity bilateral CLINICAL HISTORY: Swelling PRIORS: 05/12/2025 TECHNIQUE: Ultrasound interrogation of the deep venous structures was performed with grayscale, color Doppler, compression and augmentation. Complex solid and soft tissue right popliteal fossa mass again noted, unchanged. FINDINGS: The bilateral common femoral, superficial femoral, saphenous, popliteal and tibial veins demonstrate normal compressibility, frequency and augmentation. IMPRESSION: 1. No sonographic evidence of deep venous thrombosis in the bilateral lower extremities. 2. Right popliteal complicated mass with calcifications, unchanged. Electronically signed by Tanesha Kearney 07-02-2025 5:58 PM Supervising Physician Co-Signing Physician Notes Note cowritten with Eryn Sofia PA-C. Patient seen and examined at bedside. Patient states she is tired and has slight swelling in her feet. On exam, trace pitting edema in bilateral LE, otherwise unremarkable exam. BNP only marginally above age adjusted normal. Suspect trace decompensated HFpEF. Start 20 IV bid lasix, PT/OT eval. Metabolic workup of fatigue. Admit for observation, suspect possible discharge in AM. I have seen and discussed the case with the collaborating advanced practitioner. I agree with the above H&P. I have reviewed and confirmed the patients medical history, the findings on physical examination, and the patients diagnosis and treatment plan with Eryn Sofia PA-C and agree with the information documented. I spent a total of 20 minutes coordinating, documenting, and providing care for this patient excluding time spent in the performance of separately billed services. All of the aforementioned completed outside of collaborating with the assigned advanced practitioner for a full treatment plan. I have reviewed the advanced practitioner's documentation, and I agree with, and take responsibility for the plan of care (3) Lopez's cyst of knee Laterality: right Qualified Code(s): M71.21 - Synovial cyst of popliteal space [Lopez], right knee (5) Hypothyroidism Hypothyroidism type: unspecified Qualified Code(s): E03.9 - Hypothyroidism, unspecified (6) Hypertension Hypertension type: unspecified Qualified Code(s): I10 - Essential (primary) hypertension
[2025-07-02] MEDS ORDERED: ACETAMINOPHEN 325 MG TAB PO PRN (20:08)
[2025-07-02] MEDS ORDERED: ONDANSETRON INJ 2 MG/ML 2 ML VIAL IV PRN (20:08)
[2025-07-02] MEDS ORDERED: POLYETHYLENE (MIRALAX) 17 GM PACK PO PRN (20:08)
[2025-07-02] MEDS ORDERED: ALBUTEROL 0.5% NEB SOLN 2.5 MG/0.5 ML VIAL INH PRN (20:08)
[2025-07-02] MEDS: THIAMINE HCL 100 MG TAB PO SCH (20:32)
[2025-07-02] MEDS: PRAMIPEXOLE DIHYDROCHLO 0.5 MG TAB PO SCH (20:32)
[2025-07-02] MEDS: FOLIC ACID 1 MG TAB PO SCH (20:32)
[2025-07-02] MEDS: SERTRALINE HCL 100 MG TABLET PO SCH (20:32)
[2025-07-02] MEDS: ENOXAPARIN INJ 40 MG/0.4 ML SYR SQ SCH (20:36)
[2025-07-02] MEDS: FUROSEMIDE 40 MG/4 ML VIAL IV ONE (20:37)
[2025-07-03] MEDS: LEVOTHYROXINE SODIUM 150 MCG TABLET PO SCH (05:16)
[2025-07-03 06:29] LABS: Hematocrit (blood only) 32.6 % (37.0-47.0); Hemoglobin 10.6 g/dl (12.0-16.0); Immature Granulocytes # (auto) 0.02 K/uL (0.01-0.20); Immature Granulocytes % (auto) 0.3 %; Mean Corpuscular Hemoglobin 31.9 pg (25.0-34.0); Mean Corpuscular Volume 98.2 fL (80.0-100.0); Platelet Count 193 K/uL (130-400); RDW Standard Deviation 52.4 fL (36.4-46.3); Red Blood Count 3.32 M/uL (4.20-5.40); White Blood Count 5.72 K/ul (4.8-10.8)
[2025-07-03 06:52] LABS: Anion Gap 2.0 (3-11); Blood Urea Nitrogen 15.0 mg/dl (6-23); Calcium 8.8 mg/dl (8.6-10.3); Carbon Dioxide 37.0 mmol/L (21-32); Chloride 102.0 mmol/L (98-107); Creatinine Clr Calc Pharmacy 43.1 ml/min; Glucose 99.0 mg/dl (70-99(Fasting)); Magnesium 2.0 mg/dl (1.7-2.4); Potassium 4.1 mmol/L (3.5-5.1); Sodium 141.0 mmol/L (136-145)
[2025-07-03] MEDS: SPIRONOLACTONE 12.5 MG TAB PO SCH (08:07)
[2025-07-03] MEDS: FUROSEMIDE INJ 20 MG/2 ML VIAL IV SCH (08:07)
[2025-07-03] MEDS: METOPROLOL SUCC 25MG EXT REL TAB PO SCH (08:08)
[2025-07-03] MEDS: FLUTICASONE/VILANTEROL 200/25MCG 14 PUFFS/INHALER INH SCH (08:08)
[2025-07-03] MEDS: LOSARTAN POTASSIUM 50 MG TAB PO SCH (08:09)
[2025-07-03] MEDS: ASPIRIN 81 MG ECTAB PO SCH (08:09)
--- NOTE | 2025-07-03 08:58 | XRay Report ---
XR chest 1V portable CLINICAL HISTORY: hypoxia, new COMPARISON STUDY: 07/02/2025 FINDINGS: There are postsurgical changes of a midline sternotomy and aortic valve replacement. Epicar dial electrode is again visualized. The heart is mildly enlarged. An opacity at the right cardiophren ic angle was present in 2021 and is felt to represent a small diaphragmatic hernia. There is slight e levation of interstitium consistent with mild pulmonary vascular congestion. There are no significant pleural effusions. There is no pneumothorax. There is no lobar consolidation. There are old right-si ded rib fractures. IMPRESSION: Cardiomegaly and mild pulmonary vascular congestion similar to the preceding study. No e vidence of acute lobar consolidation. ACT 112: Negative or not required by law. Electronically signed by: Den Cali M.D. 07/03/2025 8:56 AM
--- NOTE | 2025-07-03 10:46 | Hospitalist Progress Note ---
Date of Service July 03, 2025 Assessment & Plan (1) Acute on chronic heart failure with preserved ejection fraction: (2) Restless leg syndrome: (3) Lopez's cyst of knee: (4) Pulmonary hypertension: (5) Hypothyroidism: (6) Hypertension: (7) Moderate persistent asthma in adult without complication: Plan This is an 89 yo female with PMH of s/p aortic valve replacement, chronic HFpEF, pulmonary hypertension, moderate persistent asthma, hypothyroidism, HTN, restless leg syndrome, osteoarthritis, bilateral hearing loss, depression who presents fatigue, leg swelling 2/2 mild decompensated HFpEF, physical decompensation. #Failure to Thrive in Adult #Decompensated HFpEF (EF 55%) #RV Failure #Acute hypoxic respiratory failure -BNP marginally above age adjusted normal, leg swelling -Wt today 58.1 kg today, no significant change from yesterday (wt at discharge in April 61.6 kg) -Hypoxic at 79% on room air overnight - not on home O2 at baseline, now requiring 3L NC and saturating at 93% -Volume status appears improved clinically today, repeat CXR redemonstrating mild pulmonary vascular congestion similar to the preceding study. No evidence of acute lobar consolidation -Received 40mg IV Lasix x 1 yesterday, 20mg IV Lasix BID scheduled starting this AM -Continue Aldactone, strict I&Os, low sodium diet - Routine cards consult added, appreciate recs - B12 wnl, B1 and folate labs pending - PT / OT evals for weakness, lives with daughter #HTN #S/p Aortic Valve Replacement -continue losartan -continue aspirin -continue metoprolol xl in setting of aortic valve replacement #Hypothyroidism -continue levothyroxine #Moderate Persistent Asthma -continue Advair, prn albuterol #Restless Leg Syndrome -continue ropinirole #Depression #Anxiety -continue sertraline, trazodone -holding hydroxyzine for possible weakness s/e Care coordinated with Dr. Navarro. Code status: full code DVT prophylaxis: Lovenox Will call daughter and provide update this afternoon. I spent a total of 50 minutes coordinating, documenting, and providing care for this patient excluding time spent in the performance of separately billed services or time spent by another provider/QHP. Admission and Anticipated Discharge Date Admission Date: July 02, 2025 Supervising Physician Co-Signing Physician Notes Patient seen and examined Agree with finding and plan as detailed by Faviola Godoy PA-C Subjective Seen and examined in 253-1. Feeling well and denies any severo SOB but did require supplemental O2 overnight - is not on O2 at baseline. No F/C, lightheadedness. No CP or palpitations. Feels swelling at ankles has gone down since yesterday. Sleeps with head of bed raised. No N/V, abd pain, dysuria, diarrhea or constipation. Review of Systems Review of Systems: At least ten systems reviewed and negative except as noted in the HPI. Physical Exam Physical Exam: Gen: WD/WN, NAD, resting in bed, A&Ox3, supplemental O2 new overnight HEENT: Normocephalic, atraumatic, mucous membranes moist Lung: Diminished breath sounds, faint bibasilar rales noted, no wheezing or rhonchi Heart: Regular rate, regular rhythm, +murmur, + JVD, trace BLE edema Abdomen: Soft, NT, ND +BS x 4 Extremities: no edema Skin: Warm, no rash Results & Data Results & Data Vital Signs (Past 12 Hours) Vital Signs Temp Pulse Pulse Resp BP Pulse Ox O2 Del Method 07/03/25 09:26 Nasal Cannula 07/03/25 07:16 36.4 C L 79 16 147/75 H 93 Nasal Cannula 07/03/25 07:12 78 L Room Air, Nasal Cannula 07/03/25 05:42 73 07/03/25 03:43 36.7 C 82 20 129/72 93 Room Air O2 Flow Rate 07/03/25 09:26 3 07/03/25 07:16 3 07/03/25 07:12 0 07/03/25 05:42 07/03/25 03:43 Laboratory Results Short CBC 07/02/25 07/03/25 Range/Units 16:31 06:07 WBC 5.83 5.72 (4.8-10.8) K/ul Hgb 10.6 L 10.6 L (12.0-16.0) g/dl Hct 33.0 L 32.6 L (37.0-47.0) % Plt Count 198 193 (130-400) K/uL BMP 07/02/25 07/03/25 16:31 06:07 Sodium 140 141 Potassium 3.8 4.1 Chloride 101 102 Carbon Dioxide 36 H 37 H BUN 17 15 Creatinine 0.73 0.70 Glucose 110 H 99 Calcium 8.9 8.8 Liver Function 07/02/25 Range/Units 16:31 Total Bilirubin 0.6 (0.2-1.0) mg/dl AST 26 (13-39) U/L ALT 17 (7-52) U/L Alkaline Phosphatase 126 H (34-104) U/L Albumin 3.6 (3.4-5.0) gm/dl Diagnostic Findings Chest X-Ray 07/02/25 16:33 EXAM: X-ray chest one-view portable CLINICAL HISTORY: Lower extremity edema PRIORS: 05/12/2025 CT and x-ray TECHNIQUE: Frontal view chest FINDINGS: Median sternotomy wires present. postsurgical change of the mediastinum. Improved diffuse expansion of the chest noted. No confluent opacification or pleural effusion. Cardiac size is mildly enlarged, unchanged. Mild prominence of the central pulmonary vasculature. Healed right-sided rib fractures present. Atherosclerotic disease of the aortic knob noted. IMPRESSION: Overall improvement in the appearance of the chest when compared to 05/12/2025 with mild enlargement of the cardiac silhouette and prominence of the central pulmonary vasculature which could suggest mild volume overload. Electronically signed by Tanesha Kearney 07-02-2025 5:27 PM Venous Doppler Study 07/02/25 16:33 EXAMINATION: Ultrasound venous Doppler lower extremity bilateral CLINICAL HISTORY: Swelling PRIORS: 05/12/2025 TECHNIQUE: Ultrasound interrogation of the deep venous structures was performed with grayscale, color Doppler, compression and augmentation. Complex solid and soft tissue right popliteal fossa mass again noted, unchanged. FINDINGS: The bilateral common femoral, superficial femoral, saphenous, popliteal and tibial veins demonstrate normal compressibility, frequency and augmentation. IMPRESSION: 1. No sonographic evidence of deep venous thrombosis in the bilateral lower extremities. 2. Right popliteal complicated mass with calcifications, unchanged. Electronically signed by Tanesha Kearney 07-02-2025 5:58 PM Chest X-Ray 07/03/25 08:08 XR chest 1V portable CLINICAL HISTORY: hypoxia, new COMPARISON STUDY: 07/02/2025 FINDINGS: There are postsurgical changes of a midline sternotomy and aortic valve replacement. Epicardial electrode is again visualized. The heart is mildly enlarged. An opacity at the right cardiophrenic angle was present in 2021 and is felt to represent a small diaphragmatic hernia. There is slight elevation of interstitium consistent with mild pulmonary vascular congestion. There are no significant pleural effusions. There is no pneumothorax. There is no lobar consolidation. There are old right-sided rib fractures. IMPRESSION: Cardiomegaly and mild pulmonary vascular congestion similar to the preceding study. No evidence of acute lobar consolidation. ACT 112: Negative or not required by law. Electronically signed by: Den Cali M.D. 07/03/2025 8:56 AM (3) Lopez's cyst of knee Laterality: right Qualified Code(s): M71.21 - Synovial cyst of popliteal space [Lopez], right knee (5) Hypothyroidism Hypothyroidism type: unspecified Qualified Code(s): E03.9 - Hypothyroidism, unspecified (6) Hypertension Hypertension type: unspecified Qualified Code(s): I10 - Essential (primary) hypertension
--- NOTE | 2025-07-03 11:50 | Electrocardiogram Report ---
Test Reason : Blood Pressure : */* mmHG Vent. Rate : 70 BPM Atrial Rate : 70 BPM P-R Int : 100 ms QRS Dur : 136 ms QT Int : 442 ms P-R-T Axes : 83 113 24 degrees QTcB Int : 477 ms Sinus rhythm Right bundle branch block , plus right ventricular hypertrophy Left posterior fascicular block Bifascicular block Abnormal ECG When compared with ECG of 12-May-2025 11:37, Premature supraventricular complexes are no longer Present Confirmed by Blake Anderson ([id number] on 07/03/2025 11:50:23 AM Referred By: REFERRED SELF Confirmed By: Blake Anderson
--- NOTE | 2025-07-03 13:03 | Cardiology Consultation ---
Date of Consultation July 03, 2025 Assessment & Plan (1) Acute on chronic heart failure with preserved ejection fraction: (2) Bilateral lower extremity edema: (3) Hypertension: Plan Pt presents with LE swelling and fatigue. She has a know history of s/p aortic valve replacement, chronic HFpEF, pulmonary hypertension, moderate persistent asthma, hypothyroidism, HTN, restless leg syndrome, osteoarthritis, bilateral hearing loss, depression. She has improved with IV dose of 40 mg IV. Now ambulating in room without issues on room air. On 2L at rest, but can ween down as she is able to tolerate ambulation without sob. (1) HFpEF -Continue 40 mg PO daily -Continue spironolactone 12.5 daily -Continue potassium chloride 10 meq daily -K 4.1 today -Strict I/O and daily weight -Wean O2 Pulmonary HTN/HTN -Continue Losartan 50 mg daily -Continue Metoprolol 12.5 mg daily Supervising Physician Co-Signing Physician Notes I have personally performed a history and physical examination on the patient. I have reviewed the advance practitioner's documentation, and I agree with, and take responsibility for the plan of care. 89-year-old female presenting to the hospital with lower extremity edema. Reports taking additional dose of furosemide without improvement. Treated with 1 dose of IV Lasix in the ER. Edema has resolved overnight. Denies shortness of breath, however, requiring 2 L of nasal cannula oxygen supplementation. No orthopnea, PND, weight gain, or chest discomfort. Telemetry reveals sinus rhythm in the 70s. Isolated run of paroxysmal atrial tachycardia recorded at approximately 12 AM. Recent hospitalization with similar presentation in April 2025. Echocardiogram performed 05/12/2025 demonstrating left ventricular ejection fraction of 60 to 65%, flattened septum consistent with RV pressure overload. 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 Estimated systolic pulmonary pressure greater than 60 mmHg. Heart failure secondary to diastolic dysfunction, mixed valvular heart disease, and severe pulmonary hypertension as noted above. Agree with continuation of IV diuretic therapy and Aldactone. Monitor fluid balance, daily weight, GFR, and electrolytes. Continue telemetry monitoring during hospitalization. Sodium restriction advised. Continue low-dose Toprol-XL and losartan as ordered with hold parameters. Wean supplemental oxygen as tolerated. I spent a total of 40 minutes on the date of service in preparation, delivery, and documentation of the care provided to this patient, excluding any time spent in the performance of separately billed services. Erlin Blake DO, [facility] History of Present Illness Reason for Consultation: Decomposated HFpEF now requiring O2 Requesting Physician: Faviola Mckeon PA-C Attending Physician: Lyric Navarro MD History of Present Illness Pt is a 89 year old female who is admitted for LE swelling BL and fatigue. She states she is usually physically with captivities such as washing the floors on hands and knees. States that the past few days she has noticed significant swelling and weakness. States she is instructed per her PCP that she is to take Lasix once a day but can take up to two additional doses if swelling is noted. She states she knows she took the first additional dose, but does not recall taking a third, but thinks she did. She denies lightheadedness, dizziness, cp, sob, palpitations. States that she never had any of these symptoms, it was just the swelling and intolerance of her usual activity. Allergies Allergy/AdvReac Type Severity Reaction Status Date / Time Sulfa (Sulfonamide Allergy Intermediate Rash Verified 07/02/25 16:04 Antibiotics) clonazepam [From Klonopin] Allergy Unknown ON Verified 07/02/25 16:04 [facility] codeine Allergy Unknown ON Verified 07/02/25 16:04 [facility] lisinopril AdvReac Intermediate Cough Verified 07/02/25 16:04 mepivacaine [From Carbocaine] AdvReac Intermediate [employer] Verified 07/02/25 16:04 SYMPTOMS tramadol AdvReac Intermediate RESTLESS Verified 07/02/25 16:04 LEGS, FATIGUE Home Medications Medication Instructions Recorded Confirmed Type albuterol sulfate 90 mcg/actuation 2 puff inhalation QID PRN 05/12/25 07/02/25 History aerosol inhaler Shortness Of Breath Or Wheezing aspirin 81 mg tablet,delayed 81 mg PO DAILY 05/12/25 07/02/25 History release fluticasone 250 mcg-salmeterol 50 1 inh inhalation BID 05/12/25 07/02/25 History mcg/dose blistr powdr for inhalation furosemide 40 mg tablet 40 mg PO DAILY 05/12/25 07/02/25 History hydrocodone 5 mg-acetaminophen 325 1 tab PO TID PRN Pain 05/12/25 07/02/25 History mg tablet hydroxyzine pamoate 25 mg capsule 25 mg PO DAILY 05/12/25 07/02/25 History levothyroxine 150 mcg tablet 150 mcg PO DAILYBB 05/12/25 07/02/25 History losartan 50 mg tablet 50 mg PO DAILY 05/12/25 07/02/25 History potassium chloride 10 mEq 10 meq PO DAILY 05/12/25 07/02/25 History tablet,extended release(part/cryst) pramipexole 1 mg tablet 1 mg PO UD 05/12/25 07/02/25 History trazodone 50 mg tablet 50 mg PO HS 05/12/25 07/02/25 History vit C 250 mg-vit E 90 mg-zinc 40 1 tab PO DAILY 05/12/25 07/02/25 History mg-copper 1 [id number] capsule (PreserVision AREDS-2) diclofenac sodium 1 % topical gel 2 g EXT DAILY PRN pain #50 grams 05/17/25 07/02/25 Rx (Voltaren Arthritis Pain) spironolactone 25 mg tablet 12.5 mg (1/2 x 25 mg) PO DAILY #30 05/17/25 07/02/25 Rx tabs albuterol sulfate 2.5 mg/0.5 mL 2.5 mg inhalation DIRECTED PRN 07/02/25 07/02/25 History solution for nebulization Shortness Of Breath Or Wheezing benzonatate 100 mg capsule 100 mg PO TID PRN Cough 07/02/25 07/02/25 History calcium 600 mg (as 1 tab PO DAILY 07/02/25 07/02/25 History carbonate)-vitamin D3 10 mcg (400 unit) tablet (Calcium 600 + D(3)) metoprolol succinate 25 mg 12.5 mg PO QAM 07/02/25 07/02/25 History tablet,extended release 24 hr qccnaszewghq-qyubteqx-xorlrv 1 tab PO DAILY 07/02/25 07/02/25 History tablet (Multivitamin 50 Plus tablet) sertraline 100 mg tablet 100 mg PO HS 07/02/25 07/02/25 History Patient History Medical History (Updated 07/03/25 @ 02:06 by Naif Guadalupe MD) Iron deficiency anemia Vascular malformation Bilateral edema of lower extremity CHF exacerbation Acute on chronic diastolic (congestive) heart failure COVID-19 Insomnia Delirium due to dissociative drug from lorazepam 0.5mg pill Encounter for pre-operative examination Osteoarthritis GERD (gastroesophageal reflux disease) Acute alteration in mental status Slow to wake up after anesthesia Rheumatoid arthritis Esophagitis Diverticular disease Anemia Hyperlipidemia borderline per pt Chronic obstructive pulmonary disease rare res inh use per pt Asthma rare res inh use per pt Surgical History (Updated 05/16/25 @ 15:23 by FLAVIO Odell) H/O aortic valve replacement History of cataract surgery LEFT Hx of foot surgery right History of carpal tunnel release left History of total knee replacement left History of esophagogastroduodenoscopy (EGD) History of colonoscopy History of hysterectomy History of appendectomy History of tooth extraction History of cholecystectomy History of tonsillectomy History of aortic valve repair 2016 per pt Family History Daughter Slow to wake up after anesthesia Social History Smoking Status: Never smoker Second Hand Exposure: No; Do You Dip or Chew Tobacco: No; Tobacco Cessation Education Requested by Patient: No Hx Alcohol Use: No Hx Substance Use: No Preferred Language: Japanese Communication Ability: Impaired 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 Just states she gets more "tired out" easier Cardiovascular: Additional Comments: Denies any cp, or palpitations. Neurologic: + generalized weakness Physical Exam Constitutional: + thin Eyes: PERRL Neck: trachea midline, no thyromegaly Respiratory: normal respiratory effort Auscultation: lungs clear to auscultation bilaterally Cardiovascular: Heart Sounds: + murmur Extremities: normal capillary refill Gastrointestinal (Abdomen): normal bowel sounds, soft, nontender, no hepatosplenomegaly Musculoskeletal: no cyanosis or clubbing, extremities motor strength 5/5 Skin: no rashes, warm and dry Neurologic: PERRL, EOMI, accommodation nl, no face palsy, no dysarthria Psychiatric: A+Ox3, euthymic affect Results & Data Vital Signs (Past 12 Hours) Vital Signs Temp Pulse Pulse Resp BP BP Pulse Ox 07/03/25 11:53 95 07/03/25 11:30 07/03/25 11:29 36.7 C 64 18 97/57 L 95 07/03/25 09:26 07/03/25 07:16 36.4 C L 79 16 147/75 H 93 07/03/25 07:12 78 L 07/03/25 05:42 73 07/03/25 03:43 36.7 C 82 20 129/72 93 Pulse Ox O2 Del Method O2 Flow Rate 07/03/25 11:53 Nasal Cannula 2 07/03/25 11:30 88 L 07/03/25 11:29 Nasal Cannula 2 07/03/25 09:26 Nasal Cannula 3 07/03/25 07:16 Nasal Cannula 3 07/03/25 07:12 Room Air, Nasal Cannula 0 07/03/25 05:42 07/03/25 03:43 Room Air Laboratory Results Cardiac Enzymes 07/02/25 Range/Units 16:31 AST 26 (13-39) U/L Troponin I High Sens 16.4 H (0-14) pg/ml B-Natriuretic Peptide 321 H (0-100) pg/ml Coagulation 07/02/25 Range/Units 16:31 B-Natriuretic Peptide 321 H (0-100) pg/ml CBC 07/02/25 07/03/25 Range/Units 16:31 06:07 WBC 5.83 5.72 (4.8-10.8) K/ul RBC 3.35 L 3.32 L (4.20-5.40) M/uL Hgb 10.6 L 10.6 L (12.0-16.0) g/dl Hct 33.0 L 32.6 L (37.0-47.0) % Plt Count 198 193 (130-400) K/uL Neut # (Auto) 3.88 3.93 (1.40-6.50) K/uL Lymph # (Auto) 1.08 L 0.98 L (1.20-3.40) K/uL Stokes # (Auto) 0.58 0.53 (0.11-0.59) K/uL Eos # (Auto) 0.21 0.21 (0.00-0.50) K/uL Baso # (Auto) 0.06 0.05 (0.00-0.20) K/uL Comprehensive Metabolic Panel 07/02/25 07/03/25 Range/Units 16:31 06:07 Sodium 140 141 (136-145) mmol/L Potassium 3.8 4.1 (3.5-5.1) mmol/L Chloride 101 102 (98-107) mmol/L Carbon Dioxide 36 H 37 H (21-32) mmol/L BUN 17 15 (6-23) mg/dl Creatinine 0.73 0.70 (0.6-1.2) mg/dl Glucose 110 H 99 (70-99(Fasting)) mg/dl Calcium 8.9 8.8 (8.6-10.3) mg/dl AST 26 (13-39) U/L ALT 17 (7-52) U/L Alkaline Phosphatase 126 H (34-104) U/L Total Protein 6.5 (6.0-8.3) gm/dl Albumin 3.6 (3.4-5.0) gm/dl Intake and Output 07/02/25 07/03/25 07/03/25 22:59 06:59 14:59 Intake Total 100 / 200 100 / 200 Balance 100 / 200 100 / 200 Intake: Oral 100 / 200 100 / 200 Other: Weight 58.1 kg 58.332 kg Weight Measurement Method Standing Scale Built in [facility] Patient Weight 07/04/25 06:59 Weight 58.332 kg Diagnostic Findings Chest x-ray 07/03/25 IMPRESSION: Cardiomegaly and mild pulmonary vascular congestion similar to the preceding study. No evidence of acute lobar consolidation. LE Doppler 07/03/25 IMPRESSION: 1. No sonographic evidence of deep venous thrombosis in the bilateral lower extremities. 2. Right popliteal complicated mass with calcifications, unchanged. Electronically signed by Tanesha Kearney 07-02-2025 5:58 PM PG Care Time/CCT Total # of Minutes Spent Total Time Spent with Patient: 55 Coding Level of Care Code 41121 IN/OBS CONSULT LVL 5,80M Diagnoses Acute on chronic heart failure with preserved ejection fraction I50.33 Bilateral lower extremity edema R60.0 Hypertension, unspecified type I10 Hypertension type: unspecified (3) Hypertension Hypertension type: unspecified Qualified Code(s): I10 - Essential (primary) hypertension
[2025-07-03] MEDS: HYDROCODONE/ACETAMOPHEN 5/325MG TAB PO PRN (16:53)
[2025-07-04 08:15] LABS: Hematocrit (blood only) 35.3 % (37.0-47.0); Hemoglobin 11.3 g/dl (12.0-16.0); Mean Corpuscular Hemoglobin 31.0 pg (25.0-34.0); Mean Corpuscular Volume 97.0 fL (80.0-100.0); Platelet Count 207 K/uL (130-400); RDW Standard Deviation 51.3 fL (36.4-46.3); Red Blood Count 3.64 M/uL (4.20-5.40); White Blood Count 7.07 K/ul (4.8-10.8)
[2025-07-04 08:33] LABS: Anion Gap 3.0 (3-11); Blood Urea Nitrogen 24.0 mg/dl (6-23); Calcium 8.9 mg/dl (8.6-10.3); Carbon Dioxide 37.0 mmol/L (21-32); Chloride 99.0 mmol/L (98-107); Creatinine Clr Calc Pharmacy 41.9 ml/min; Glucose 102.0 mg/dl (70-99(Fasting)); Potassium 4.0 mmol/L (3.5-5.1); Sodium 139.0 mmol/L (136-145)
--- NOTE | 2025-07-04 10:27 | Hospitalist Progress Note ---
Date of Service July 04, 2025 Assessment & Plan (1) Acute on chronic heart failure with preserved ejection fraction: (2) Restless leg syndrome: (3) Lopez's cyst of knee: (4) Pulmonary hypertension: (5) Hypothyroidism: (6) Hypertension: (7) Moderate persistent asthma in adult without complication: Plan This is an 89 yo female with PMH of s/p aortic valve replacement, chronic HFpEF, pulmonary hypertension, moderate persistent asthma, hypothyroidism, HTN, restless leg syndrome, osteoarthritis, bilateral hearing loss, depression who presents fatigue, leg swelling 2/2 mild decompensated HFpEF, physical decompensation. #Failure to Thrive in Adult #Decompensated HFpEF (EF 55%) #RV Failure #Acute hypoxic respiratory failure -BNP marginally above age adjusted normal, leg swelling -Wt today 58.1 kg -> 57 kg today -Volume status appears improved clinically today, repeat CXR redemonstrating mild pulmonary vascular congestion similar to the preceding study. No evidence of acute lobar consolidation -Requiring O2 during admission (new) - weaned from 3 to 2L NC. Encouraging IS, dilakeing. May need to consider 2 step for tomorrow if placement is found -Received 40mg IV Lasix x 1 yesterday, continuing 20mg IV Lasix BID per cardiology -Continue Aldactone, strict I&Os, low sodium diet - PT recommending rehab, CM helping with referrals #HTN #S/p Aortic Valve Replacement -continue losartan -continue aspirin -continue metoprolol xl in setting of aortic valve replacement #Hypothyroidism -continue levothyroxine #Moderate Persistent Asthma -continue Advair, prn albuterol #Restless Leg Syndrome -continue ropinirole #Depression #Anxiety -continue sertraline, trazodone -holding hydroxyzine for possible weakness s/e Care coordinated with Dr. Navarro. Code status: full code DVT prophylaxis: Lovenox Dispo: CM assisting with placement - rehab vs home with services Daughter updated. I spent a total of 50 minutes coordinating, documenting, and providing care for this patient excluding time spent in the performance of separately billed services or time spent by another provider/QHP. Admission and Anticipated Discharge Date Admission Date: July 03, 2025 Supervising Physician Co-Signing Physician Notes Patient seen and examined Agree with findings and plans as detailed by Faviola Mckeon PA-C Subjective Patient seen and examined today in 253-1. Feeling similar to previous; not notably SOB but still requiring O2. Diuresing well. Feels weak. No F/C, lightheadedness, CP, N/V, abd pain, dysuria, diarrhea or constipation. Review of Systems Review of Systems: At least ten systems reviewed and negative except as noted in the HPI. Physical Exam Physical Exam: Gen: WD/WN, NAD, resting in bed, A&Ox3, supplemental O2 HEENT: Normocephalic, atraumatic, mucous membranes moist Lung: Diminished breath sounds, crackles resolved, no wheezing or rhonchi Heart: Regular rate, regular rhythm, +murmur, no edema Abdomen: Soft, NT, ND +BS x 4 Extremities: no edema Skin: Warm, no rash Results & Data Results & Data Vital Signs (Past 12 Hours) Vital Signs Temp Pulse Pulse Resp BP Pulse Ox O2 Del Method 07/04/25 08:54 Nasal Cannula 07/04/25 07:17 36.8 C 66 18 118/70 99 Nasal Cannula 07/04/25 05:48 70 07/04/25 03:28 36.4 C L 76 18 146/71 H 92 Nasal Cannula O2 Flow Rate 07/04/25 08:54 2 07/04/25 07:17 2 07/04/25 05:48 07/04/25 03:28 2 Laboratory Results Short CBC 07/04/25 Range/Units 07:56 WBC 7.07 (4.8-10.8) K/ul Hgb 11.3 L (12.0-16.0) g/dl Hct 35.3 L (37.0-47.0) % Plt Count 207 (130-400) K/uL BMP 07/04/25 07:56 Sodium 139 Potassium 4.0 Chloride 99 Carbon Dioxide 37 H BUN 24 H Creatinine 0.72 Glucose 102 H Calcium 8.9 Diagnostic Findings Chest X-Ray 07/02/25 16:33 EXAM: X-ray chest one-view portable CLINICAL HISTORY: Lower extremity edema PRIORS: 05/12/2025 CT and x-ray TECHNIQUE: Frontal view chest FINDINGS: Median sternotomy wires present. postsurgical change of the mediastinum. Improved diffuse expansion of the chest noted. No confluent opacification or pleural effusion. Cardiac size is mildly enlarged, unchanged. Mild prominence of the central pulmonary vasculature. Healed right-sided rib fractures present. Atherosclerotic disease of the aortic knob noted. IMPRESSION: Overall improvement in the appearance of the chest when compared to 05/12/2025 with mild enlargement of the cardiac silhouette and prominence of the central pulmonary vasculature which could suggest mild volume overload. Electronically signed by Tanesha Kearney 07-02-2025 5:27 PM Venous Doppler Study 07/02/25 16:33 EXAMINATION: Ultrasound venous Doppler lower extremity bilateral CLINICAL HISTORY: Swelling PRIORS: 05/12/2025 TECHNIQUE: Ultrasound interrogation of the deep venous structures was performed with grayscale, color Doppler, compression and augmentation. Complex solid and soft tissue right popliteal fossa mass again noted, unchanged. FINDINGS: The bilateral common femoral, superficial femoral, saphenous, popliteal and tibial veins demonstrate normal compressibility, frequency and augmentation. IMPRESSION: 1. No sonographic evidence of deep venous thrombosis in the bilateral lower extremities. 2. Right popliteal complicated mass with calcifications, unchanged. Electronically signed by Tanesha Kearney 07-02-2025 5:58 PM Chest X-Ray 07/03/25 08:08 XR chest 1V portable CLINICAL HISTORY: hypoxia, new COMPARISON STUDY: 07/02/2025 FINDINGS: There are postsurgical changes of a midline sternotomy and aortic valve replacement. Epicardial electrode is again visualized. The heart is mildly enlarged. An opacity at the right cardiophrenic angle was present in 2021 and is felt to represent a small diaphragmatic hernia. There is slight elevation of interstitium consistent with mild pulmonary vascular congestion. There are no significant pleural effusions. There is no pneumothorax. There is no lobar consolidation. There are old right-sided rib fractures. IMPRESSION: Cardiomegaly and mild pulmonary vascular congestion similar to the preceding study. No evidence of acute lobar consolidation. ACT 112: Negative or not required by law. Electronically signed by: Den Cali M.D. 07/03/2025 8:56 AM (3) Lopez's cyst of knee Laterality: right Qualified Code(s): M71.21 - Synovial cyst of popliteal space [Lopez], right knee (5) Hypothyroidism Hypothyroidism type: unspecified Qualified Code(s): E03.9 - Hypothyroidism, unspecified (6) Hypertension Hypertension type: unspecified Qualified Code(s): I10 - Essential (primary) hypertension
--- NOTE | 2025-07-04 11:02 | Cardiology Progress Note ---
Date of Service July 04, 2025 Assessment & Plan (1) Acute on chronic heart failure with preserved ejection fraction: (2) Bilateral lower extremity edema: (3) Hypertension: Plan Pt presents with LE swelling and fatigue. She has a know history of s/p aortic valve replacement, chronic HFpEF, pulmonary hypertension, moderate persistent asthma, hypothyroidism, HTN, restless leg syndrome, osteoarthritis, bilateral hearing loss, depression. She has improved with IV dose of 40 mg IV. Now ambulating in room without issues on room air. On 2L at rest, but can ween down as she is able to tolerate ambulation without sob. (1) HFpEF -Continue Lasix 40 mg PO daily -Continue spironolactone 12.5 daily -Continue potassium chloride 10 meq daily -K 4.0 -Strict I/O and daily weight -Has been voiding in toilet without measurement. Instructed pt to use hat to o btain accurate I/O -Weight down from 58.3 to 57 -Wean O2 Pulmonary HTN/HTN -Continue Losartan 50 mg daily -Continue Metoprolol 12.5 mg daily -BP at 11 am 116/59 Admission and Anticipated Discharge Date Admission Date: July 03, 2025 Supervising Physician Co-Signing Physician Notes I have personally performed a history and physical examination on the patient. I have reviewed the advance practitioner's documentation, and I agree with, and take responsibility for the plan of care. 89-year-old female presenting to the hospital with lower extremity edema. Reports taking additional dose of furosemide without improvement. Treated with 1 dose of IV Lasix in the ER. Edema has resolved overnight. Denies shortness of breath, however, requiring 2 L of nasal cannula oxygen supplementation. No orthopnea, PND, weight gain, or chest discomfort. Telemetry reveals sinus rhythm in the 70s. Echocardiogram performed 05/12/2025 demonstrating left ventricular ejection fraction of 60 to 65%, flattened septum consistent with RV pressure overload. 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 Estimated systolic pulmonary pressure greater than 60 mmHg. Heart failure secondary to diastolic dysfunction, mixed valvular heart disease, and severe pulmonary hypertension as noted above. Continue IV furosemide and Aldactone. Monitor fluid balance, daily weight, GFR, and electrolytes. Continue low-dose Toprol-XL and losartan as ordered with hold parameters. Telemetry monitoring during hospitalization. Sodium restriction advised. Wean suppleme ntal oxygen as tolerated. I spent a total of 30 minutes on the date of service in preparation, delivery, and documentation of the care provided to this patient, excluding any time spent in the performance of separately billed services. Erlin Blake DO, [facility] Subjective Patient seen for follow-up for shortness of breath swelling in legs and fatigue. Today patient is doing well states she is at her baseline denies any chest pain, shortness of breath, lightheadedness, dizziness, palpitations. States she feels a little bit sluggish but not like she did when she came in and is ready to get home back to her normal activities. Review of Systems Review of Systems: All systems reviewed & are unremarkable except as noted in HPI & below Physical Exam Constitutional: + thin Eyes: PERRL Neck: trachea midline, no thyromegaly Respiratory: normal respiratory effort Auscultation: lungs clear to auscultation bilaterally Cardiovascular: Heart Sounds: + murmur Extremities: normal capillary refill Gastrointestinal (Abdomen): normal bowel sounds, soft, nontender, no hepatosplenomegaly Musculoskeletal: no cyanosis or clubbing, extremities motor strength 5/5 Skin: no rashes, warm and dry Neurologic: PERRL, EOMI, accommodation nl, no face palsy, no dysarthria Psychiatric: A+Ox3, euthymic affect Results & Data Vital Signs (Past 12 Hours) Vital Signs Temp Pulse Pulse Resp BP Pulse Ox O2 Del Method 07/04/25 08:54 Nasal Cannula 07/04/25 07:17 36.8 C 66 18 118/70 99 Nasal Cannula 07/04/25 05:48 70 07/04/25 03:28 36.4 C L 76 18 146/71 H 92 Nasal Cannula O2 Flow Rate 07/04/25 08:54 2 07/04/25 07:17 2 07/04/25 05:48 07/04/25 03:28 2 Laboratory Results CBC 07/04/25 Range/Units 07:56 WBC 7.07 (4.8-10.8) K/ul RBC 3.64 L (4.20-5.40) M/uL Hgb 11.3 L (12.0-16.0) g/dl Hct 35.3 L (37.0-47.0) % Plt Count 207 (130-400) K/uL Comprehensive Metabolic Panel 08/05/25 Range/Units 07:56 Sodium 139 (136-145) mmol/L Potassium 4.0 (3.5-5.1) mmol/L Chloride 99 (98-107) mmol/L Carbon Dioxide 37 H (21-32) mmol/L BUN 24 H (6-23) mg/dl Creatinine 0.72 (0.6-1.2) mg/dl Glucose 102 H (70-99(Fasting)) mg/dl Calcium 8.9 (8.6-10.3) mg/dl Intake and Output 07/03/25 07/04/25 07/04/25 22:59 06:59 14:59 Intake Total 240 / 240 Output Total 400 / 400 Balance 240 / 240 -400 / -400 Intake: Oral 240 / 240 Output: Urine 400 / 400 Other: # Unmeasured Voids 1 Weight 57 kg Weight Measurement Method Built in [facility] Diagnostic Findings Chest x-ray 07/03/25 IMPRESSION: Cardiomegaly and mild pulmonary vascular congestion similar to the preceding study. No evidence of acute lobar consolidation. Medications Administered Current Inpatient Medications Acetaminophen (Acetaminophen 325 Mg Tab) 650 mg PO Q4H PRN PRN Reason: pain/fever Stop: 08/01/25 20:07 Hydrocodone Bitart/Acetaminophen (Hydrocodone/Acetamophen 5/325mg Tab) 1 tab PO TID PRN PRN Reason: Pain Stop: 07/16/25 20:07 Last Admin: 07/03/25 16:53 Dose: 1 tab Albuterol (Albuterol 0.5% Neb Soln 2.5 Mg/0.5 Ml Vial) 2.5 mg INH Q6R PRN; Protocol PRN Reason: Shortness Of Breath Or Wheezing Stop: 08/01/25 20:07 Aspirin (Aspirin 81 Mg Ectab) 81 mg PO DAILY JENNIFER Stop: 08/02/25 08:59 Last Admin: 07/04/25 08:09 Dose: 81 mg Enoxaparin Sodium (Enoxaparin Inj 40 Mg/0.4 Ml Syr) 40 mg SQ Q24H JENNIFER Stop: 08/01/25 20:59 Last Admin: 07/03/25 20:22 Dose: 40 mg Fluticasone/Vilanterol (Fluticasone/Vilanterol 200/25mcg 14 Puffs/Inhaler) 1 puffs INH DAILY JENNIFER Stop: 08/02/25 08:59 Last Admin: 07/04/25 08:10 Dose: 1 puffs Folic Acid (Folic Acid 1 Mg Tab) 1 mg PO QAM JENNIFER Stop: 08/01/25 18:59 Last Admin: 07/04/25 08:09 Dose: 1 mg Furosemide (Furosemide Inj 20 Mg/2 Ml Vial) 20 mg IV [id number] JENNFIER Stop: 08/02/25 08:59 Last Admin: 07/04/25 08:09 Dose: 20 mg Levothyroxine Sodium (Levothyroxine Sodium 150 Mcg Tablet) 150 mcg PO DAILYBB JENN[facility]ER Stop: 08/02/25 06:29 Last Admin: 07/04/25 06:02 Dose: 150 mcg Losartan Potassium (Losartan Potassium 50 Mg Tab) 50 mg PO DAILY JENNIFER Stop: 08/02/25 08:59 Last Admin: 07/04/25 08:09 Dose: 50 mg Metoprolol Succinate (Metoprolol Succ 25mg Ext Rel Tab) 12.5 mg PO QAM [facility] Stop: 08/02/25 08:59 Last Admin: 07/04/25 08:09 Dose: 12.5 mg Ondansetron HCl (Ondansetron Inj 2 Mg/Ml 2 Ml Vial) 4 mg IV Q6H PRN PRN Reason: Nausea Stop: 08/01/25 20:07 Polyethylene Glycol (Polyethylene (Miralax) 17 Gm Pack) 17 gm PO DAILY PRN PRN Reason: Constipation Stop: 08/01/25 20:07 Pramipexole Dihydrochloride (Pramipexole Dihydrochlo 0.5 Mg Tab) 1 mg PO 1600,2100 JENN[facility]ER Stop: 08/01/25 20:59 Last Admin: 07/03/25 20:22 Dose: 1 mg Sertraline HCl (Sertraline Hcl 100 Mg Tablet) 100 mg PO HS JENNIFER Stop: 08/01/25 20:59 Last Admin: 07/03/25 20:22 Dose: 100 mg Spironolactone (Spironolactone 12.5 Mg Tab) 12.5 mg PO DAILY JENNIFER Stop: 08/02/25 08:59 Last Admin: 07/04/25 08:08 Dose: 12.5 mg Thiamine HCl (Thiamine Hcl 100 Mg Tab) 100 mg PO QAM JENN[facility]ER Stop: 08/01/25 18:59 Last Admin: 07/04/25 08:09 Dose: 100 mg Trazodone HCl (Trazodone Hcl 50 Mg Tab) 50 mg PO HS JENNIFER Stop: 08/01/25 20:59 Last Admin: 07/03/25 20:22 Dose: 50 mg PG Care Time/CCT Total # of Minutes Spent Total Time Spent with Patient: 55 Coding Level of Care Code 21434 SUB INP/OBS CARE 3/50MIN Diagnoses Acute on chronic heart failure with preserved ejection fraction I50.33 Bilateral lower extremity edema R60.0 Hypertension, unspecified type I10 Hypertension type: unspecified (3) Hypertension Hypertension type: unspecified Qualified Code(s): I10 - Essential (primary) hypertension
[2025-07-04 19:39] VITALS: RESP 18
[2025-07-05 03:54] LABS: Hematocrit (blood only) 31.8 % (37.0-47.0); Hemoglobin 10.4 g/dl (12.0-16.0); Mean Corpuscular Hemoglobin 31.9 pg (25.0-34.0); Mean Corpuscular Volume 97.5 fL (80.0-100.0); Platelet Count 215 K/uL (130-400); RDW Standard Deviation 51.1 fL (36.4-46.3); Red Blood Count 3.26 M/uL (4.20-5.40); White Blood Count 5.35 K/ul (4.8-10.8)
[2025-07-05 04:16] LABS: Anion Gap 6.0 (3-11); Blood Urea Nitrogen 33.0 mg/dl (6-23); Calcium 8.7 mg/dl (8.6-10.3); Carbon Dioxide 35.0 mmol/L (21-32); Chloride 96.0 mmol/L (98-107); Creatinine Clr Calc Pharmacy 28.7 ml/min; Glucose 94.0 mg/dl (70-99(Fasting)); Potassium 3.5 mmol/L (3.5-5.1); Sodium 137.0 mmol/L (136-145)
[2025-07-05 11:16] VITALS: TEMP 98.2; O2SAT 96
--- NOTE | 2025-07-05 11:54 | Cardiology Progress Note ---
Date of Service July 05, 2025 Assessment & Plan (1) Acute on chronic heart failure with preserved ejection fraction: (2) Bilateral lower extremity edema: (3) Hypertension: Plan Pt presents with LE swelling and fatigue. She has a know history of s/p aortic valve replacement, chronic HFpEF, pulmonary hypertension, moderate persistent asthma, hypothyroidism, HTN, restless leg syndrome, osteoarthritis, bilateral hearing loss, depression. She has improved with IV dose of 40 mg IV. Now ambulating in room without issues on room air. On 2L at rest, but can ween down as she is able to tolerate ambulation without sob. (1) HFpEF -Continue Lasix 40 mg PO daily -Continue spironolactone 12.5 daily -Continue potassium chloride 10 meq daily -K 3.5 -Strict I/O and daily weight -Has been voiding in toilet without measurement. Instructed pt to use hat to o btain accurate I/O -Weight down to 56.4 from 58 yesterday - Negative 370ml last 24 hours -Wean O2. Currently at 2L Pulmonary HTN/HTN -Continue Losartan 50 mg daily -Continue Metoprolol 12.5 mg daily -BP at 11 138/70 I spent a total of 30 minutes coordinating, documenting, and providing care for this patient excluding time spent in the performance of separately billed services or time spent by another provider. Admission and Anticipated Discharge Date Admission Date: July 03, 2025 Supervising Physician Co-Signing Physician Notes Attending attestation: Case reviewed with the advanced practitioner. I have personally performed a history and physical examination on the patient. I have reviewed the advanced practitioner's documentation on the date of service referenced in note, and I agree with, and take responsibility for the plan of care. Subjective: Patient subjectively improved. Exam: Cardiovascular: Regular rhythm, 2/6 systolic murmur, no edema Data: Telemetry reveals sinus rhythm in the 60s, sinus rhythm in the range of 40 to 60 bpm overnight last night, one brief run of atrial tachycardia at 2:09 AM. Impression/ Plan: Acute on chronic heart failure with preserved ejection fraction Mixed valvular heart disease - Stable for transition to furosemide 40 mg p.o. daily and transferred to inpatient rehab. I spent a total of 20 minutes coordinating, documenting, and providing care for this patient excluding time spent in the performance of separately billed services or time spent by another provider. Chan [place], DO Review of Systems Constitutional: Denies any fever, night sweats or other issues with feeling ill Respiratory: Denies any jenkins, or sob. States she is getting better, but not quite there yet Cardiovascular: Additional Comments: Denies any cp, or palpitations. Neurologic: + generalized weakness Physical Exam Constitutional: + thin Eyes: PERRL Neck: trachea midline, no thyromegaly Respiratory: normal respiratory effort Auscultation: lungs clear to auscultation bilaterally Cardiovascular: Heart Sounds: + murmur Extremities: normal capillary refill Gastrointestinal (Abdomen): normal bowel sounds, soft, nontender, no hepatosplenomegaly Musculoskeletal: no cyanosis or clubbing, extremities motor strength 5/5 Skin: no rashes, warm and dry Neurologic: PERRL, EOMI, accommodation nl, no face palsy, no dysarthria Psychiatric: A+Ox3, euthymic affect Results & Data Vital Signs (Past 12 Hours) Vital Signs Temp Pulse Pulse Resp BP BP Pulse Ox 07/05/25 11:15 36.8 C 63 18 138/70 96 07/05/25 10:52 07/05/25 07:24 49 L 07/05/25 07:19 36.6 C 60 18 138/70 98 07/05/25 02:48 36.4 C L 56 L 18 119/70 99 O2 Del Method O2 Flow Rate 07/05/25 11:15 Nasal Cannula 2 07/05/25 10:52 Nasal Cannula 2 07/05/25 07:24 07/05/25 07:19 Nasal Cannula 2 07/05/25 02:48 Nasal Cannula 2 Laboratory Results CBC 07/05/25 Range/Units 03:15 WBC 5.35 (4.8-10.8) K/ul RBC 3.26 L (4.20-5.40) M/uL Hgb 10.4 L (12.0-16.0) g/dl Hct 31.8 L (37.0-47.0) % Plt Count 215 (130-400) K/uL Comprehensive Metabolic Panel 07/05/25 Range/Units 03:15 Sodium 137 (136-145) mmol/L Potassium 3.5 (3.5-5.1) mmol/L Chloride 96 L (98-107) mmol/L Carbon Dioxide 35 H (21-32) mmol/L BUN 33 H (6-23) mg/dl Creatinine 1.05 D (0.6-1.2) mg/dl Glucose 94 (70-99(Fasting)) mg/dl Calcium 8.7 (8.6-10.3) mg/dl Intake and Output 07/04/25 07/05/25 07/05/25 22:59 06:59 14:59 Intake Total 480 / 580 100 / 580 Output Total 550 / 950 Balance -70 / -370 100 / -370 Intake: Oral 480 / 580 100 / 580 Output: Urine 550 / 950 Other: # Unmeasured Voids 1 Weight 58 kg 56.4 kg Weight Measurement Method Built in Bedscale Standing Scale Patient Weight 07/06/25 06:59 Weight 56.4 kg Medications Administered Current Inpatient Medications Acetaminophen (Acetaminophen 325 Mg Tab) 650 mg PO Q4H PRN PRN Reason: pain/fever Stop: 08/01/25 20:07 Hydrocodone Bitart/Acetaminophen (Hydrocodone/Acetamophen 5/325mg Tab) 1 tab PO TID PRN PRN Reason: Pain Stop: 07/16/25 20:07 Last Admin: 07/04/25 19:43 Dose: 1 tab Albuterol (Albuterol 0.5% Neb Soln 2.5 Mg/0.5 Ml Vial) 2.5 mg INH Q6R PRN; Protocol PRN Reason: Shortness Of Breath Or Wheezing Stop: 08/01/25 20:07 Aspirin (Aspirin 81 Mg Ectab) 81 mg PO DAILY JENNIFER Stop: 08/02/25 08:59 Last Admin: 07/05/25 07:59 Dose: 81 mg Enoxaparin Sodium (Enoxaparin Inj 30 Mg/0.3 Ml Syr) 30 mg SQ Q24H JENNIFER Stop: 08/04/25 20:59 Fluticasone/Vilanterol (Fluticasone/Vilanterol 200/25mcg 14 Puffs/Inhaler) 1 puffs INH DAILY JENNIFER Stop: 08/02/25 08:59 Last Admin: 07/05/25 08:01 Dose: 1 puffs Folic Acid (Folic Acid 1 Mg Tab) 1 mg PO QAM JENNIFER Stop: 08/01/25 18:59 Last Admin: 07/05/25 07:59 Dose: 1 mg Furosemide (Furosemide Inj 20 Mg/2 Ml Vial) 20 mg IV BID17 JENNIFER Stop: 08/02/25 08:59 Last Admin: 07/05/25 08:01 Dose: 20 mg Levothyroxine Sodium (Levothyroxine Sodium 150 Mcg Tablet) 150 mcg PO DAILYBB [facility] Stop: 08/02/25 06:29 Last Admin: 07/05/25 06:09 Dose: 150 mcg Losartan Potassium (Losartan Potassium 50 Mg Tab) 50 mg PO DAILY JENNIFER Stop: 08/02/25 08:59 Last Admin: 07/05/25 07:59 Dose: 50 mg Metoprolol Succinate (Metoprolol Succ 25mg Ext Rel Tab) 12.5 mg PO QAM [facility] Stop: 08/02/25 08:59 Last Admin: 07/05/25 07:59 Dose: 12.5 mg Ondansetron HCl (Ondansetron Inj 2 Mg/Ml 2 Ml Vial) 4 mg IV Q6H PRN PRN Reason: Nausea Stop: 08/01/25 20:07 Polyethylene Glycol (Polyethylene (Miralax) 17 Gm Pack) 17 gm PO DAILY PRN PRN Reason: Constipation Stop: 08/01/25 20:07 Pramipexole Dihydrochloride (Pramipexole Dihydrochlo 0.5 Mg Tab) 1 mg PO 1600,2100 [facility] Stop: 08/01/25 20:59 Last Admin: 07/04/25 20:23 Dose: 1 mg Sertraline HCl (Sertraline Hcl 100 Mg Tablet) 100 mg PO HS [facility] Stop: 08/01/25 20:59 Last Admin: 07/04/25 20:23 Dose: 100 mg Spironolactone (Spironolactone 12.5 Mg Tab) 12.5 mg PO DAILY [facility] Stop: 08/02/25 08:59 Last Admin: 07/05/25 08:00 Dose: 12.5 mg Thiamine HCl (Thiamine Hcl 100 Mg Tab) [facility] Stop: 08/01/25 18:59 Last Admin: 07/05/25 07:59 Dose: 100 mg Trazodone HCl (Trazodone Hcl 50 Mg Tab) 50 mg PO [facility] Stop: 08/01/25 20:59 Last Admin: 07/04/25 20:23 Dose: 50 mg Coding Level of Care Code 46167 SUB INP/OBS CARE 3/50MIN History Detailed Exam Detailed Medical Decision Making High Complexity Diagnoses Acute on chronic heart failure with preserved ejection fraction I50.33 Bilateral lower extremity edema R60.0 Hypertension, unspecified type I10 Hypertension type: unspecified Time Spent (min) 50 Comment 30 minutes spend by FLAVIO Guzmán, [address] Hein (3) Hypertension Hypertension type: unspecified Qualified Code(s): I10 - Essential (primary) hypertension
--- NOTE | 2025-07-05 13:59 | Hospitalist Progress Note ---
<Statement entered by Jorg eAlberto Barahona DO - 07/05/25 14:55> I have seen and examined the patient and have discussed the case with the advance practice provider. I have reviewed the advanced practitioner's documentation, and I agree with, and take responsibility for that plan of care. Patient resting comfortably at the time my evaluation. Agreeable for plans for discharge I spent a total of 15 minutes coordinating, documenting, and providing care for this patient excluding time spent by another provider/QHP. Date of Service July 05, 2025 Assessment & Plan (1) Acute on chronic heart failure with preserved ejection fraction: (2) Restless leg syndrome: (3) Lopez's cyst of knee: (4) Pulmonary hypertension: (5) Hypothyroidism: (6) Hypertension: (7) Moderate persistent asthma in adult without complication: Plan This is an 89 yo female with PMH of s/p aortic valve replacement, chronic HFpEF, pulmonary hypertension, moderate persistent asthma, hypothyroidism, HTN, restless leg syndrome, osteoarthritis, bilateral hearing loss, depression who presents fatigue, leg swelling 2/2 mild decompensated HFpEF, physical decompensation. #Acute decompensated HFpEF (EF 55%), mixed valvular heart disease #RV Failure -BNP marginally above age adjusted normal, leg swelling -Wt today 58.1 kg -> 57 kg today -> 56.4 kg -Volume status appears improved clinically today -Cardiology consulted - okay to transition back to home lasix, Aldactone regimen today. Ok for dc to [facility] -Accepted at [facility] - awaiting bed #Acute hypoxic respiratory failure In setting of decompensated HF -Requiring O2 during admission (new) - weaned from 3 to 2L NC. Encouraging incentive spirometry, diuresing as above -Has needed during previous admission as well. Daughter states she was encouraged to use pulse ox for home monitoring but patient not interested. ? baseline hypoxia. [facility] provider to follow, wean as tolerated - Scheduled for PFTs in Jul, pulm follow up for underlying asthma #Failure to Thrive in Adult -Daughter notes decreased motivation at home, decreased appetite - Recent admission in April. Returned home with services but felt she needs more rehabilitation prior to return - Appetite has improved during admission - Continue thiamine supplement for 30 days #HTN #S/p Aortic Valve Replacement - Continue losartan - Continue aspirin - Continue metoprolol xl in setting of aortic valve replacement #Hypothyroidism - Continue levothyroxine #Moderate Persistent Asthma - Continue Advair, prn albuterol #Restless Leg Syndrome - Continue ropinirole #Depression #Anxiety - Continue sertraline, trazodone - Hydralazine held initially due to s/e of weakness - will resume as PRN on discharge Code status: full code DVT prophylaxis: Lovenox Dispo: CM assisting with placement - plan for [facility] rehab once bed available Daughter updated at bedside today. Care coordinated with Dr. Barahona. I spent a total of 50 minutes coordinating, documenting, and providing care for this patient excluding time spent in the performance of separately billed services or time spent by another provider/QHP. Admission and Anticipated Discharge Date Admission Date: July 03, 2025 Subjective Patient seen and examined today in 253-1. Feeling generally weak but SOB improved. Still requiring O2. Wt decreased to 56.4 with diuresis. Chronic R knee pain from previous surgery. No F/C, lightheadedness, CP, N/V, abd pain, dysuria, diarrhea or constipation. Review of Systems Review of Systems: At least ten systems reviewed and negative except as noted in the HPI. Physical Exam Physical Exam: Gen: WD/WN, NAD, resting in bed, A&Ox3, supplemental O2 HEENT: Normocephalic, atraumatic, mucous membranes moist Lung: Diminished breath sounds, no wheezing or rhonchi Heart: Regular rate, regular rhythm, +murmur, no edema Abdomen: Soft, NT, ND +BS x 4 Extremities: no edema Skin: Warm, no rash Results & Data Results & Data Vital Signs (Past 12 Hours) Vital Signs Temp Pulse Pulse Resp BP BP Pulse Ox 07/05/25 11:15 36.8 C 63 18 138/70 96 07/05/25 10:52 07/05/25 07:24 49 L 07/05/25 07:19 36.6 C 60 18 138/70 98 07/05/25 02:48 36.4 C L 56 L 18 119/70 99 O2 Del Method O2 Flow Rate 07/05/25 11:15 Nasal Cannula 2 07/05/25 10:52 Nasal Cannula 2 07/05/25 07:24 07/05/25 07:19 Nasal Cannula 2 07/05/25 02:48 Nasal Cannula 2 Laboratory Results Short CBC 07/05/25 Range/Units 03:15 WBC 5.35 (4.8-10.8) K/ul Hgb 10.4 L (12.0-16.0) g/dl Hct 31.8 L (37.0-47.0) % Plt Count 215 (130-400) K/uL [facility] 07/05/25 03:15 Sodium 137 Potassium 3.5 Chloride 96 L Carbon Dioxide 35 H BUN 33 H Creatinine 1.05 D Glucose 94 Calcium 8.7 Diagnostic Findings Chest X-Ray 07/02/25 16:33 EXAM: X-ray chest one-view portable CLINICAL HISTORY: Lower extremity edema PRIORS: 05/12/2025 CT and x-ray TECHNIQUE: Frontal view chest FINDINGS: Median sternotomy wires present. postsurgical change of the mediastinum. Improved diffuse expansion of the chest noted. No confluent opacification or pleural effusion. Cardiac size is mildly enlarged, unchanged. Mild prominence of the central pulmonary vasculature. Healed right-sided rib fractures present. Atherosclerotic disease of the aortic knob noted. IMPRESSION: Overall improvement in the appearance of the chest when compared to 05/12/2025 with mild enlargement of the cardiac silhouette and prominence of the central pulmonary vasculature which could suggest mild volume overload. Electronically signed by Tanesha Kearney 07-02-2025 5:27 PM Venous Doppler Study 07/02/25 16:33 EXAMINATION: Ultrasound venous Doppler lower extremity bilateral CLINICAL HISTORY: Swelling PRIORS: 05/12/2025 TECHNIQUE: Ultrasound interrogation of the deep venous structures was performed with grayscale, color Doppler, compression and augmentation. Complex solid and soft tissue right popliteal fossa mass again noted, unchanged. FINDINGS: The bilateral common femoral, superficial femoral, saphenous, popliteal and tibial veins demonstrate normal compressibility, frequency and augmentation. IMPRESSION: 1. No sonographic evidence of deep venous thrombosis in the bilateral lower extremities. 2. Right popliteal complicated mass with calcifications, unchanged. Electronically signed by Tanesha Kearney 07-02-2025 5:58 PM Chest X-Ray 07/03/25 08:08 XR chest 1V portable CLINICAL HISTORY: hypoxia, new COMPARISON STUDY: 07/02/2025 FINDINGS: There are postsurgical changes of a midline sternotomy and aortic valve replacement. Epicardial electrode is again visualized. The heart is mildly enlarged. An opacity at the right cardiophrenic angle was present in 2021 and is felt to represent a small diaphragmatic hernia. There is slight elevation of interstitium consistent with mild pulmonary vascular congestion. There are no significant pleural effusions. There is no pneumothorax. There is no lobar consolidation. There are old right-sided rib fractures. IMPRESSION: Cardiomegaly and mild pulmonary vascular congestion similar to the preceding study. No evidence of acute lobar consolidation. ACT 112: Negative or not required by law. Electronically signed by: Den Cali M.D. 07/03/2025 8:56 AM (3) Lopez's cyst of knee Laterality: right Qualified Code(s): M71.21 - Synovial cyst of popliteal space [Lopez], right knee (5) Hypothyroidism Hypothyroidism type: unspecified Qualified Code(s): E03.9 - Hypothyroidism, unspecified (6) Hypertension Hypertension type: unspecified Qualified Code(s): I10 - Essential (primary) hypertension
--- NOTE | 2025-07-05 15:02 | Discharge Summary ---
<Statement entered by Jorge Alberto Barahona, DO - 07/05/25 17:06> I have seen and examined the patient and have discussed the case with the advance practice provider. I have reviewed the advanced practitioner's documentation, and I agree with, and take responsibility for that plan of care. Patient seen just prior to discharge, sitting in her chair. Denies any respiratory distress. Lungs decreased but clear, no Rales No significant edema in lower extremities Agree with plans for discharge to rehabilitation. I spent a total of 16 minutes coordinating, documenting, and providing care for this patient excluding time spent by another provider/QHP. Discharge Summary Date of Service July 05, 2025 Principal Dx & Hospital Course #1 = Principal Diagnosis (1) Acute on chronic heart failure with preserved ejection fraction: (2) Restless leg syndrome: (3) Lopez's cyst of knee: (4) Pulmonary hypertension: (5) Hypothyroidism: (6) Hypertension: (7) Moderate persistent asthma in adult without complication: Plan This is an 89 yo female with PMH of s/p aortic valve replacement, chronic HFpEF, pulmonary hypertension, moderate persistent asthma, hypothyroidism, HTN, restless leg syndrome, osteoarthritis, bilateral hearing loss, depression who presents fatigue, leg swelling 2/2 mild decompensated HFpEF, physical decompensation. #Acute decompensated HFpEF (EF 55%), mixed valvular heart disease #RV Failure -BNP marginally above age adjusted normal, leg swelling -Wt today 58.1 kg -> 57 kg today -> 56.4 kg -Volume status appears improved clinically today -Cardiology consulted - okay to transition back to home lasix, Aldactone regimen today. Ok for dc to [facility] #Acute hypoxic respiratory failure In setting of decompensated HF -Requiring O2 during admission (new) - weaned from 3 to 2L NC. Encouraging incentive spirometry, diuresing as above -Has needed during previous admission as well. Daughter states she was encouraged to use pulse ox for home monitoring but patient not interested. ? baseline hypoxia. [facility] provider to follow, wean as tolerated - Scheduled for PFTs in Jul, pulm follow up for underlying asthma #Failure to Thrive in Adult -Daughter notes decreased motivation at home, decreased appetite - Recent admission in April. Returned home with services but felt she needs more rehabilitation prior to return - Appetite has improved during admission - Continue thiamine supplement for 30 days #HTN #S/p Aortic Valve Replacement - Continue losartan - Continue aspirin - Continue metoprolol xl in setting of aortic valve replacement #Hypothyroidism - Continue levothyroxine #Moderate Persistent Asthma - Continue Advair, prn albuterol #Restless Leg Syndrome - Continue ropinirole #Depression #Anxiety - Continue sertraline, trazodone - Hydralazine held initially due to s/e of weakness - will resume as PRN on discharge Notes For Next Care Provider decompensated R HF improved with diuresis, requiring 2L supplemental O2 (new vs. ? new baseline requirement), failure to thrive component Medication Changes From Visit hydralazine 25mg daily now PRN. Resumed home lasix 40mg and Aldactone continued on dc Admission HPI Per Admitting Provider 89 yo female with pmhx of severe aortic stenosis s/p aortic valve replacement in 2017, chronic HFpEF, pulmonary hypertension, moderate persistent asthma, hypothyroidism, HTN, restless leg syndrome, osteoarthritis, bilateral hearing loss, depression, and other history as outlined below who presents to the ED with fatigue and increased leg swelling. Pt was most recenttly admitted 05/12- 05/17/25 for acute on chronic HFpEF, underwent IV diuresis before diuretics transitioned back to po. Her weight at discharge was 61.689 kg. She followed up with cardiology on 06/15/25 and was doing well, weight that day was 56.7 kg. Pt reports that she was overall at baseline until today when she noticed her slippers were tight with increased pedal edema. She took an extra dose of furosemide but didn't notice any improvement so her daughter brought her to the ED for evaluation. She told her daughter earlier today that she didn't feel well and was more tired than usual though she reports to me at present that she feels about at her baseline. She denies any increased shortness of breath or TAN. She has not used her albuterol inhaler at all recently. She denies chest pain, palpitations, syncope, N/V, fevers, chills, sweats, recent illness. She notes increased urinary frequency but no dysuria or hematuria. Pt's daughter is at bedside and assisted with the history. She reports that pt uses canes to ambulate at home but often uses a walker when she is out of the house. In the ED, BNP marginally above age adjusted normal (89 age normal, currently 89), marginally elevated HS troponin, give lasix x1, admitted to medicine for further workup. Admission Exam Per Admitting Provider General: awake, alert, NAD HEENT: +hard of hearing, no scleral icterus, moist oral mucosa Neck: supple, trachea midline Heart: RRR, +murmur Lungs: faint bibasilar crackles but otherwise clear, no wheezing or rhonchi Abdomen: soft, NT, +BS Extremities: trace LE edema Skin: warm, dry, no jaundice or rashes Neurologic: Ox3, no confusion or dysarthria, moving all extremities Discharge Exam Gen: WD/WN, NAD, resting in bed, A&Ox3, supplemental O2 HEENT: Normocephalic, atraumatic, mucous membranes moist Lung: Diminished breath sounds, no wheezing or rhonchi Heart: Regular rate, regular rhythm, +murmur, no edema Abdomen: Soft, NT, ND +BS x 4 Extremities: no edema Skin: Warm, no rash Updated Medication List Medication Instructions Recorded Confirmed Type albuterol sulfate 90 mcg/actuation 2 puff inhalation QID PRN 05/12/25 07/02/25 History aerosol inhaler Shortness Of Breath Or Wheezing aspirin 81 mg tablet,delayed 81 mg PO DAILY 05/12/25 07/02/25 History release fluticasone 250 mcg-salmeterol 50 1 inh inhalation BID 05/12/25 07/02/25 History mcg/dose blistr powdr for inhalation furosemide 40 mg tablet 40 mg PO DAILY 05/12/25 07/02/25 History hydrocodone 5 mg-acetaminophen 325 1 tab PO TID PRN Pain 05/12/25 07/02/25 History mg tablet hydroxyzine pamoate 25 mg capsule 25 mg PO DAILY 05/12/25 07/02/25 History levothyroxine 150 mcg tablet 150 mcg PO DAILYBB 05/12/25 07/02/25 History losartan 50 mg tablet 50 mg PO DAILY 05/12/25 07/02/25 History potassium chloride 10 mEq 10 meq PO DAILY 05/12/25 07/02/25 History tablet,extended release(part/cryst) pramipexole 1 mg tablet 1 mg PO UD 05/12/25 07/02/25 History trazodone 50 mg tablet 50 mg PO HS 05/12/25 07/02/25 History vit C 250 mg-vit E 90 mg-zinc 40 1 tab PO DAILY 05/12/25 07/02/25 History mg-copper 1 [id number] capsule (PreserVision AREDS-2) diclofenac sodium 1 % topical gel 2 g EXT DAILY PRN pain #50 grams 05/17/25 07/02/25 Rx (Voltaren Arthritis Pain) spironolactone 25 mg tablet 12.5 mg (1/2 x 25 mg) PO DAILY #30 05/17/25 07/02/25 Rx tabs albuterol sulfate 2.5 mg/0.5 mL 2.5 mg inhalation DIRECTED PRN 07/02/25 07/02/25 History solution for nebulization Shortness Of Breath Or Wheezing benzonatate 100 mg capsule 100 mg PO TID PRN Cough 07/02/25 07/02/25 History calcium 600 mg (as 1 tab PO DAILY 07/02/25 07/02/25 History carbonate)-vitamin D3 10 mcg (400 unit) tablet (Calcium 600 + D(3)) metoprolol succinate 25 mg 12.5 mg PO QAM 07/02/25 07/02/25 History tablet,extended release 24 hr [id number] 1 tab PO DAILY 07/02/25 07/02/25 History tablet (Multivitamin 50 Plus tablet) sertraline 100 mg tablet 100 mg PO HS 07/02/25 07/02/25 History thiamine HCl (vitamin B1) 100 mg 100 mg PO QAM #30 tabs 07/05/25 Rx tablet Hospital Stay Data Consultations 07/02/25 18:32 ED Decision to Admit Stat 07/03/25 10:12 Consult Cardiology Routine Diagnostic Imagining Performed 07/02/25 16:33 US venous doppler LE Stat Pending Results Patient Have Any Pending Studies at Discharge: No Discharge Instructions Given to Patient (Per Discharging Provider) MEDICATION CHANGES: NEW: Thiamine 100mg daily x 1 month CHANGE: Hydroxyzine 25mg daily as needed (instead of scheduled) RECOMMENDATIONS FOR FOLLOW-UP: Continue home cardiac medications, low sodium diet. Continue supplemental oxygen as needed - wean if tolerated at [facility]. Continue medication regimen as scheduled aside from changes noted above. OTHER INSTRUCTIONS: Seek medical attention if you have: * temperature above 101 * chest pain or trouble breathing * abdominal pain, nausea, vomiting * diarrhea, dark stools or bloody stools * any unanswered questions or concerns Call 911 if symptoms are severe. Please take good care of yourself. Call if you have any questions or problems. You can reach a [facility] hospitalist on duty at [facility] 24 hours a day by calling [phone]. Total Time Total Time Spent Total Time Spent (In Minutes): 45
[2025-07-05 15:07] VITALS: BP 119/70; PULSE 62
[2025-07-05] MEDS ORDERED: ENOXAPARIN INJ 30 MG/0.3 ML SYR SQ SCH (21:00)
== END 2025-07-05 15:15 | DRG 291 ==
LOC: 2W 15:45 → ED 15:45 → SUATTDRO 18:42 → 2W 19:32 → SUATTDRO 07-03 15:26